=== PATIENT | female | born 1950 | race Caucasian/White ===

== ENCOUNTER 2017-01-17 10:35 | Inpatient (IN) | payer BC ==
[~2017-01-17] VITALS: Ht 162.6 cm; Wt 58.5 kg
[2017-01-17] VITALS (18 sets, daily range): BP systolic 107–182; BP diastolic 61–96; PULSE 57–92; RESP 16–20; TEMP 97.5–98.6; O2SAT 96–100
[~2017-01-17 10:35] MED LIST: BENA25CA2 PO; ERYT2GEL9 TOPICAL; IMDU60TA PO; LEVA750T PO; LEVO50TA4 PO; LOSA25TA PO; METO25TA3 PO; PERC5TAB12 PO; ROSU40 PO; VORA1TAB PO
[2017-01-17] MEDS ORDERED: ASPIRIN 325 MG TAB PO ONE (11:00)
[2017-01-17] MEDS ORDERED: SODIUM CHLORIDE 0.9% FLUSH 10 ML FLUSH IVF PRN (11:00)
[2017-01-17 11:06] LABS: AUTOMATED NEUTROPHIL # 5.2 TH/MM3 (1.8-7.7); BASOPHIL # 0.2 TH/MM3 (0-0.2); EOSINOPHIL # 0.1 TH/MM3 (0-0.4); EOSINOPHIL % 1.3 % (0.0-4.0); HEMATOCRIT 46.9 % (35.0-46.0); LYMPH % 22.9 % (9.0-44.0); LYMPHOCYTE # 1.8 TH/MM3 (1.0-4.8); MEAN CELL VOLUME 83.8 FL (80.0-100.0); MEAN CORPUSCULAR HEMOGLOBIN 27.8 PG (27.0-34.0); MEAN CORPUSCULAR HGB CONC 33.2 % (32.0-36.0); MONO % 9.2 % (0.0-8.0); NEUT % 64.6 % (16.0-70.0); PLATELET COUNT 201 TH/MM3 (150-450); RED CELL DISTRIBUTION WIDTH 14.7 % (11.6-17.2); WHITE BLOOD COUNT 8.1 TH/MM3 (4.0-11.0)
[2017-01-17] MEDS ORDERED: PLAV75TA29 PO (11:06)
[2017-01-17] MEDS ORDERED: BENA25TA3 PO (11:06)
[2017-01-17] MEDS ORDERED: ASPI81CH CHEW (11:07)
[2017-01-17 11:09] LABS: HEMO FLAGS DIFF FINAL
[2017-01-17] MEDS: NITROGLYCERIN 0.4 MG SL 25 TABS/BTL SL SCH ×3 (11:12→11:31)
--- NOTE | 2017-01-17 11:22 | RADHPO ---
EXAM DATE/TIME: 01/17/2017 11:00 [place] COMPARISON: CHEST PA & LAT, August 15, 2016, 12:10. INDICATIONS : [place]/pain in chest. MEDICAL HISTORY : Hypertension. Myocardial infarction. Hypercholesterolemia. AAA. Thyroid disease. Diabetic. Endmet reosis. SURGICAL HISTORY : Tonsillectomy. Fusion, cervical. Tubal ligation. Cardiac stents. ENCOUNTER: Initial ACUITY: 3 days PAIN SCORE: 6/10 LOCATION: chest FINDINGS: A single view of the chest demonstrates the lungs to be symmetrically aerated without evidence of mas s, infiltrate or effusion. The cardiomediastinal contours are unremarkable. Osseous structures are intact. CONCLUSION: 1. No acute cardiopulmonary findings. Jeff Shahid MD on January 17, 2017 at 11:20 Board Certified Radiologist. This report was verified electronically.
[2017-01-17 11:26] LABS: BICARBONATE 19.8 MEQ/L (21.0-32.0); MAGNESIUM 2.1 MG/DL (1.5-2.5)
[2017-01-17 11:27] LABS: APTT (PATIENT) 26.8 SEC (24.3-30.1); PROTHROMBIN TIME - PATIENT 10.8 SEC (9.8-11.6)
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
[2017-01-17] MEDS ORDERED: SODIUM CHLORID 0.9% 500 ML INJ 500 ML IV ONE (11:45)
[2017-01-17] MEDS ORDERED: ACETAMINOPHEN 325 MG TAB PO ONE (11:45)
[2017-01-17] MEDS ORDERED: ALUMINUM/MAGNESIUM/SIMETH 30 ML CUP PO ONE (12:00)
[2017-01-17] MEDS ORDERED: ONDANSETRON HCL 4 MG/2 ML VIAL IV PUSH ONE (12:00)
[2017-01-17] MEDS ORDERED: LIDOCAINE VISCOUS 2% SOLN 15 ML UDC PO ONE (12:00)
[2017-01-17 12:15] LABS: INDIRECT BILIRUBIN 0.6 MG/DL (0.0-0.8); TOTAL BILIRUBIN ADULT 0.7 MG/DL (0.2-1.0)
[2017-01-17] MEDS ORDERED: HEPARIN SODIUM - IV 10,000 UNITS/10 ML VIAL IV ONE (12:45)
[2017-01-17] MEDS ORDERED: HEPARIN-D5W INJ 250 ML IV SCH (12:45)
[2017-01-17] MEDS ORDERED: NICOTINE 21 MG/24 HR PATCH T-DERMAL ONE (12:45)
[2017-01-17] MEDS ORDERED: METOPROLOL TARTRATE 25 MG TAB PO ONE (13:00)
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
[2017-01-17] MEDS ORDERED: diphenhydrAMINE HCL 25 MG CAP PO PRN (17:00)
[2017-01-17] MEDS ORDERED: MORPHINE SULFATE 4 MG/ML INJ IV PRN (17:00)
[2017-01-17] MEDS ORDERED: DEXTROSE 50% IN WATER 50 ML VIAL(D50) IV PUSH PRN (17:00)
[2017-01-17] MEDS ORDERED: NALOXONE HCL 0.4 MG/ML AMP IV PRN (17:00)
[2017-01-17] MEDS ORDERED: [UNRECOGNIZED DRUG - REMARK] PO PRN (17:00)
[2017-01-17] MEDS ORDERED: SENNOSIDES 8.6 MG TAB PO PRN (17:00)
[2017-01-17] MEDS ORDERED: GLUCAGON 1 MG/ML VIAL OTHER PRN (17:00)
[2017-01-17] MEDS ORDERED: ONDANSETRON HCL 4 MG/2 ML VIAL IVP PRN (17:00)
[2017-01-17] MEDS ORDERED: SODIUM CHLORIDE 0.9% FLUSH 10 ML FLUSH IV FLUSH PRN (17:00)
[2017-01-17] MEDS ORDERED: NITROGLYCERIN 0.4 MG SL 25 TABS/BTL SL PRN (17:00)
[2017-01-17] MEDS: DOCUSATE SODIUM 100 MG CAP PO SCH (18:02)
[2017-01-17] MEDS: PANTOPRAZOLE SOD 40 MG DELAYED RELEASE TAB PO SCH (18:02)
[2017-01-17] MEDS: SODIUM CHLOR 0.9% 1000 ML INJ 1,000 ML IV SCH (18:12)
[2017-01-17 18:15] LABS: APTT (PATIENT) 42.8 SEC (24.3-30.1)
[2017-01-17] MEDS ORDERED: DIAZEPAM 5 MG TAB PO SCH (18:15)
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
[2017-01-17 18:20] LABS: CREATINE KINASE 41 U/L (26-192)
[2017-01-17] MEDS ORDERED: diphenhydrAMINE HCL 25 MG CAP PO SCH (18:30)
[2017-01-17] MEDS ORDERED: ENALAPRILAT 1.25 MG/ML VIAL IV PUSH PRN (18:30)
[2017-01-17] MEDS ORDERED: HEPARIN SODIUM - IV 10,000 UNITS/10 ML VIAL IV PRN ×2 (18:45)
[2017-01-17 20:02] LABS: BACTERIA, URINE RARE /hpf; BLOOD, URINE NEG (NEG); COMMENT (UR) CULT NOT INDICATED; CULTURE IF INDICATED CULT NOT INDICATED; GLUCOSE,URINE NEG (NEG); HYALINE CAST, URINE 10 /lpf (RARE); KETONE, URINE NEG (NEG); MUCUS URINE FEW /lpf (OCC); NITRITE,URINE NEG (NEG); PH, URINE 5.5 (5.0-8.5); SQUAMOUS EPITHELIAL CELL URINE 7 /hpf (0-5); URINE COLOR YELLOW (YELLW/STRAW)
--- NOTE | 2017-01-17 20:17 | RADRPT ---
EXAM DATE/TIME: 01/17/2017 18:23 [facility] COMPARISON: No previous studies available for comparison. INDICATIONS : Right upper quadrant pain. Nausea/vomiting. MEDICAL HISTORY : Myocardial infarction. Aneurysm, abdominal. Hypercholesterolemia. Thyroid disease. HTN. Endometreosis . Diabetes. Anticoagulant therapy, Plavix. SURGICAL HISTORY : Tonsillectomy. Tubal ligation. Titanium plate in neck. Cardiac stent. Exploratory laprascopy. Right trigger thumb surgery. Blood transfusions. ENCOUNTER: Initial ACUITY: 4-6 days PAIN SCORE: 8/10 LOCATION: Right upper quadrant MEASUREMENTS: LIVER: 12.4 cm length COMMON DUCT: 4 mm RIGHT KIDNEY: 9.4 x 4.0 x 4.2 cm FINDINGS: LIVER: Normal echotexture without focal lesion or ductal dilatation. COMMON DUCT: No intraluminal mass or stone visualized. GALLBLADDER: Contains no stones, demonstrates no wall thickening or pericholecystic fluid. PANCREAS: The visualized portions are within normal limits. RIGHT KIDNEY: No evidence of hydronephrosis, stone, or mass. CONCLUSION: Normal examination. Pola Barrow MD on January 17, 2017 at 20:15 Board Certified Radiologist. This report was verified electronically.
[2017-01-17] MEDS: METOPROLOL TARTRATE 25 MG TAB PO SCH (21:00)
[2017-01-17] MEDS: INSULIN ASPART SUPPLEMENTAL SCALE SQ SCH (21:00)
--- NOTE | 2017-01-17 21:35 | MB ---
cc: POLINA OLIVAREZ M.D. DATE OF CONSULTATION 01/17/17 REASON FOR CONSULTATION Evaluation of chest pain and elevated troponin. HISTORY OF PRESENT ILLNESS Katerina Mederos is a 66-year-old woman who has been a patient of mine for many years. She has known severe vascular disease. Unfortunately, she suffers from chronic tobacco addiction. She did quit for a few months but restarted soon after she had surgery on her left leg. She is known to have carotid disease, peripheral arterial disease and coronary artery disease. She underwent left common femoral endarterectomy not that long ago and had major complications with hemorrhaging, repeat surgery and nerve damage in her leg. She has recovered from that. She started smoking again. She also has known coronary artery disease. She had an acute inferior myocardial ST-segment elevation myocardial infarction July 24, 2008 and at that time had a 3.0 x 18 mm stent placed in her mid right coronary artery. Her last cardiac catheterization was June 18, 2009. At that time she had normal LV function with an EF 60%. Her left main artery was normal. Her LAD had irregularities throughout. There were no high-grade stenoses in the LAD but the first branch off the LAD which is like a ramus had 6% ostial and 70% proximal disease. The second branch off the LAD which coursed more like a diagonal had 60% ostial disease. Circumflex artery was small with 40-50% ostial disease. Her right coronary artery had diffuse 30% plaquing with a patent mid stent and 40% ostial right coronary disease. She has been having angina described as a heaviness in her chest when she does simple things like vacuuming. Then, she started getting very sick starting which was 1 week ago. She described a substernal burning discomfort between her breasts. She has been queasy. She has been fatigued. She had some vomiting Sunday night. Sunday she was holding her chest because it hurt. She has also had discomfort in her upper back. She also has had some GI symptoms with nausea, vomiting. Some ___ bowel she described it and burning in her chest. Her nitro at home are old. She had no effects from that. She received 3 nitro in the ER with significant improvement in her discomfort, although, has not completely 100% resolved. She is currently on IV heparin and looks stable and she has been only intermittently compliant with her medications. She has not had any Plavix in the past week. Her other medications she has been taking sporadically. MEDICATIONS Her medications have included: 1. 81 milligrams aspirin daily. 2. Levothyroxine 50 micrograms daily. 3. Metoprolol 25 milligrams p.o. b.i.d. 4. Rosuvastatin 40 milligrams daily. 5. Plavix which she has not been taking. ALLERGIES ALLERGIES INCLUDE AMOXICILLIN, DARVOCET AND NAPROXEN. PAST MEDICAL HISTORY Includes small abdominal aortic aneurysm, chronic angina, first-degree AV block, left bundle-branch block. Previous bowel obstruction with surgery, this was due to endometriosis many years ago. Depression, type 2 diabetes, Antony's thyroiditis, hyperlipidemia, hypertension, old HI. Peripheral arterial disease. Tobacco use disorder. FAMILY HISTORY Family history is positive for COPD in both parents. CHF in her mother. Coronary artery disease in her father. Depression in her mother. Diabetes in her father. Hypertension in her father. Myocardial infarction in her father and stomach cancer in her maternal grandfather. SOCIAL HISTORY Only occasional alcohol use. She is . She smokes. REVIEW OF SYSTEMS The review of systems otherwise noncontributory. PHYSICAL EXAMINATION GENERAL: Reveals a well-developed, well-nourished white female. She does not appear to be in acute distress. VITAL SIGNS: Charted. HEENT: Exam is unremarkable. NECK: Shows a left carotid bruit. I think she has a right subclavian bruits. There is also noise in the right carotid but it sounds like it may be coming from the subclavian. CHESET: Her chest shows diminished breath sounds but no wheezes or rales. CARDIAC: Exam shows S1-S2, regular rate and rhythm. No murmurs, gallops. ABDOMEN: Abdomen is soft, nontender. No bruits. Right groin has no bruits paste. EXTREMITIES: Pedal pulses are normal in the right. There is mildly diminished in the left. Radial pulses are intact. CARDIOLOGY STUDIES EKG shows sinus rhythm with a left bundle-branch block. DATA Her laboratories are charted. Her troponin is 0.07. Her hematocrit is normal. Creatinine is normal. Her chest x-ray shows no acute disease. Hematocrit was 46.9 which is actually mildly elevated. Creatinine 0.92. IMPRESSION This is a 66-year-old woman with severe vascular disease that is generalized throughout her whole body. She underwent left common femoral endarterectomy not that long ago and had significant complications from that. She is clearly having anginal type symptoms with a heaviness in her chest when she vacuums. She did not have that when I last saw her in the office. The symptoms she has had in the past week are mixed. I still think that most likely due to ischemia I cannot completely exclude a GI etiology either. Her troponins mildly elevated but only slightly. EKG is not helpful in that it shows left bundle-branch block. My by working diagnosis is that this is unstable angina, possible non-STEMI. My recommendation is that we proceed with a cardiac catheterization in the morning. Continue heparin for time-being, continue nitrates and beta ehsan. I have counseled her over a dozen times about quitting smoking. My concern with the coronaries is that she had three-vessel disease on her cath in 2008 and there has been quite a bit of time that has elapsed since then and the likelihood that she needs bypass surgery is markedly elevated. I have explained this to her. She actually has not had any Plavix in the past week and I am discontinuing it in case she needs Plavix she will not have to be delayed for that. I was thinking of doing his from the right radial artery approach but she sounds like she has a right subclavian bruits. She has a good right groin pulse and good pulses in her right foot so I am going to through the right groin, although, I do know she has diffuse iliac disease from her cath in 2008. The risk of her procedure her risks are clearly elevated but will be careful. Further therapy be determined. Polina Olivarez MD VEBrandy/EO /6:18 PM /9:08 PM
[2017-01-17] MEDS: SODIUM CHLORIDE 0.9% FLUSH 10 ML FLUSH IV FLUSH SCH (21:52)
[2017-01-17] MEDS ORDERED: NITROGLYCERIN 2% OINT 1 GM PACKET TOPICAL ONE (22:45)
[2017-01-18] VITALS (34 sets, daily range): BP systolic 111–141; BP diastolic 50–74; PULSE 50–72; RESP 16–18; TEMP 97.5–98.6; O2SAT 94–98
[2017-01-18 02:20] LABS: AUTOMATED NEUTROPHIL # 4.8 TH/MM3 (1.8-7.7); BASOPHIL # 0.1 TH/MM3 (0-0.2); BASOPHIL % 0.7 % (0.0-2.0); EOSINOPHIL # 0.2 TH/MM3 (0-0.4); HEMATOCRIT 38.7 % (35.0-46.0); HEMO FLAGS DIFF FINAL; LYMPH % 28.5 % (9.0-44.0); LYMPHOCYTE # 2.2 TH/MM3 (1.0-4.8); MEAN CELL VOLUME 83.3 FL (80.0-100.0); MEAN CORPUSCULAR HEMOGLOBIN 27.9 PG (27.0-34.0); MEAN CORPUSCULAR HGB CONC 33.4 % (32.0-36.0); MONO % 7.9 % (0.0-8.0); NEUT % 60.9 % (16.0-70.0); PLATELET COUNT 161 TH/MM3 (150-450); RED BLOOD COUNT 4.64 MIL/MM3 (4.00-5.30); RED CELL DISTRIBUTION WIDTH 15.1 % (11.6-17.2); WHITE BLOOD COUNT 7.8 TH/MM3 (4.0-11.0)
[2017-01-18 02:29] LABS: APTT (PATIENT) 64.7 SEC (24.3-30.1)
[2017-01-18 02:48] LABS: ALT (GPT) 21 U/L (10-53); ANION GAP 8 MEQ/L (5-15); AST (GOT) 13 U/L (15-37); BICARBONATE 24.1 MEQ/L (21.0-32.0); BLOOD UREA NITROGEN 17 MG/DL (7-18); CHLORIDE 107 MEQ/L (98-107); GLOMERULAR FILTRATION RATE 63 ML/MIN (>89); POTASSIUM 3.9 MEQ/L (3.5-5.1); SODIUM (NA) 139 MEQ/L (136-145)
[2017-01-18 02:58] LABS: ALKALINE PHOSPHATASE 86 U/L (45-117); TOTAL BILIRUBIN ADULT 0.4 MG/DL (0.2-1.0)
[2017-01-18] MEDS ORDERED: NITROGLYCERIN-DEXTROSE INJ 250 ML IV SCH ×2 (05:00)
[2017-01-18] MEDS: INSULIN ASPART SUPPLEMENTAL SCALE SQ SCH ×4 (05:52→21:00)
[2017-01-18] MEDS: PANTOPRAZOLE SOD 40 MG DELAYED RELEASE TAB PO SCH ×2 (05:54→18:00)
[2017-01-18] MEDS: LEVOTHYROXINE SODIUM 50 MCG TAB PO SCH (05:54)
[2017-01-18] MEDS: DOCUSATE SODIUM 100 MG CAP PO SCH ×2 (05:54→18:27)
[2017-01-18] MEDS: SODIUM CHLOR 0.9% 1000 ML INJ 1,000 ML IV SCH ×5 (06:15→22:28)
[2017-01-18] MEDS ORDERED: ONDANSETRON HCL 4 MG/2 ML VIAL ONE (07:22)
[2017-01-18] MEDS ORDERED: HEPARIN-NS/PF INJ 500 ML ONE (07:28)
[2017-01-18] MEDS ORDERED: MIDAZOLAM HCL 2 MG/2 ML VIAL ONE (07:28)
[2017-01-18] MEDS ORDERED: IOHEXOL 350 MG/ML 50 ML BTL (for Cath Lab) OTHER ONE (07:47)
[2017-01-18] MEDS ORDERED: MISC INFORMATION XX ONE (08:30)
--- NOTE | 2017-01-18 08:46 | MA ---
cc: POLINA OLIVAREZ M.D. DATE: 01/18/2017 PROCEDURE PERFORMED Left heart catheterization, left ventriculography, coronary angiography. DESCRIPTION OF PROCEDURE The patient was brought to the cardiac laborer orchard in a fasting state. The right groin was prepped and draped in sterile fashion. Using 1% lidocaine for local anesthesia, I was able to enter the right femoral artery on the first stick anterior wall only. This was despite the pulse being weak. I used exchange wire technique throughout the case. Left ventricular pressure followed by left ventriculography and then a pullback were performed with an angled pigtail catheter. Angiography of the left coronary artery was performed using a left four Ewelina catheter. Angiography of the right coronary artery was performed using a 3DRC catheter. The sheath was then pulled manually. There were no complications. FINDINGS 1. Hemodynamics. Left ventricular pressure is 122/16 with an end-diastolic pressure of 20, aortic pressure is 128/59 with a mean of 84. 2. Left ventriculography. Left ventriculography shows slightly impaired LV function, estimated ejection fraction is 45-50%. There is a very small slight degree of anterolateral hypokinesis which I cannot explain angiographically. 3. Coronary angiography. Left main coronary artery appears normal. It bifurcates into the LAD and circumflex vessels. The LAD has three significant branches, the first branch courses like a ramus intermediate branch and has mild diffuse disease but no significant stenosis. The second branch of the LAD which comes off by the first septal bill poster installer branch is very small diagonal with 30% ostial disease. The next diagonal is actually the largest diagonal and has about 60-70% ostial disease similar to her old procedures. The LAD itself has only mild irregularities. There is no significant stenosis seen in the LAD proper. The circumflex artery is very, very focal ostial stenosis of about 50% in severity. The circumflex artery itself gives off one major marginal branch, this has only mild irregularities. The right coronary artery is dominant. This vessel has a widely patent stent in its mid segment. The ostium to the mid stent, that segment of the right coronary artery is diffusely diseased 30%. The ostium of the right coronary artery appears small caliber. There is no spot however, that appears in need of any revascularization. The distal right coronary artery has irregularities. The posterior descending artery branch has about 50% ostial disease. CONCLUSION 1. Slightly impaired LV function. 2. Mildly elevated left ventricular end-diastolic pressure. 3. Mild diffuse coronary artery disease but no areas in need of revascularization. RECOMMENDATIONS The patient is continually reminded to quit smoking. Will continue medications. Her current syndrome might possibly be from a GI problem, will get a GI doctor consulted and wound recommend endoscopy. MD MARCELINO Huynh/RINA /8:24 AM /8:37 AM
[2017-01-18] MEDS ORDERED: NON-FORMULARY DRUG (Rosuvastatin (Crestor) 40 MG) PO SCH (09:00)
[2017-01-18] MEDS ORDERED: CLOPIDOGREL 75 MG TAB PO SCH (09:00)
[2017-01-18] MEDS ORDERED: PNEUMOCOCCAL POLYVALENT INJ 25 MCG/0.5 ML SYR IM ONE (09:00)
[2017-01-18] MEDS: LOSARTAN 25 MG TAB PO SCH (09:59)
[2017-01-18] MEDS: ASPIRIN 81 MG CHEW TAB CHEW SCH (09:59)
[2017-01-18] MEDS: METOPROLOL TARTRATE 25 MG TAB PO SCH ×2 (09:59→21:54)
[2017-01-18] MEDS: ATORVASTATIN 80 MG TAB PO SCH (09:59)
[2017-01-18] MEDS: SODIUM CHLORIDE 0.9% FLUSH 10 ML FLUSH IV FLUSH SCH ×2 (10:01→21:54)
--- NOTE | 2017-01-18 10:39 | HHI.FPPN ---
Subjective Remarks Overnight patient continued to have epigastric and lower chest pain. She was placed on sublingual nitrogen and a nitrogen drip. She continues to feel nauseous intermittently. She has indigestion and burning in her chest. She has pain radiating to the back. No shortness of breath overnight. She had a bowel movement this morning. No vomiting. No calf tenderness. (Damian Somers MD R2) Objective Vitals Vital Signs Date Time Temp Pulse Resp B/P Pulse Ox O2 Delivery O2 Flow Rate FiO2 01/18/17 09:43 97 21 01/18/17 09:30 60 112/65 01/18/17 09:15 58 129/71 01/18/17 09:00 57 127/70 01/18/17 09:00 58 01/18/17 08:45 53 130/64 01/18/17 07:00 60 01/18/17 07:00 62 18 141/66 96 01/18/17 06:18 64 01/18/17 05:32 62 01/18/17 04:00 68 01/18/17 03:00 98.6 57 16 111/50 96 01/18/17 03:00 57 01/18/17 02:00 64 01/18/17 01:00 60 01/18/17 00:00 65 01/17/17 23:00 62 01/17/17 23:00 98.6 67 16 166/83 100 01/17/17 22:00 66 01/17/17 21:00 78 01/17/17 20:00 80 01/17/17 19:00 98.3 68 18 151/94 98 01/17/17 19:00 81 01/17/17 18:00 69 01/17/17 17:45 96 21 01/17/17 17:00 61 01/17/17 16:00 68 01/17/17 15:40 97.5 57 18 157/96 96 01/17/17 13:51 62 20 145/61 99 Nasal Cannula 2 01/17/17 13:06 78 16 145/80 100 Nasal Cannula 2 01/17/17 12:24 73 16 130/67 100 Nasal Cannula 2 01/17/17 11:29 83 16 107/67 98 Nasal Cannula 2 01/17/17 11:23 77 16 109/66 99 Nasal Cannula 2 01/17/17 10:58 70 16 157/83 100 Nasal Cannula 2 133/88 01/17/17 10:57 16 100 Nasal Cannula 2 01/17/17 10:56 100 Nasal Cannula 2 01/17/17 10:52 16 99 Nasal Cannula 2 01/17/17 10:48 97.7 92 16 182/86 99 I/O 01/17/17 01/17/17 01/17/17 01/18/17 01/18/17 01/18/17 07:00 15:00 23:00 07:00 15:00 23:00 Intake Total 500 ml 240 ml 980 ml Output Total 200 ml 1 ml Balance 500 ml 40 ml 979 ml Intake Oral 240 ml 500 ml IV Total 500 ml 480 ml Output Urine Total 200 ml Stool Total 1 ml # Voids 3 (Damian Somers MD R2) Result Diagram: 01/18/1721201/18/173 Objective Remarks GENERAL: Lying in bed, no distress, appears comfortable SKIN: No rashes HEENT: Normocephalic, no nasal discharge, normal pharynx NECK: No thyromegaly, no neck stiffness CARDIOVASCULAR: Regular rate and rhythm without murmurs, gallops, or rubs. Minimal DP pulses. Normal radial pulses. RESPIRATORY: Clear to auscultation. Breath sounds equal bilaterally. No wheezes , rales, or rhonchi. GASTROINTESTINAL: Pain on palpation of the RUQ. Positive Canales's sign. Significant tenderness palpation in the epigastric region. MUSCULOSKELETAL: Mild pain on palpation of the paraspinal muscles of the upper back. No calf tenderness or swelling. NEUROLOGICAL: Awake and alert. Cranial nerves II through XII intact. Motor and sensory grossly within normal limits. (Damian Somers MD R2) A/P Assessment and Plan 66 year old female with a significant cardiovascular history presents with lower chest pain, epigastric pain, indigestion. DDx is broad, and includes inferior TX, indigestion/GERD, costochondritis, cholecystitis, pancreatitis, AAA rupture, and esophageal/peptic ulcer. Lipase jumped up to 1314 overnight. Discharge Planning Pending reasonable control of symptoms, ruling out serious etiologies, clearance by cardiology (Damian Somers MD R2) Attending Attestation Patient seen and examined, discussed with resident team. I agree with assessment and management as documented and discussed with me. The patient has been seen and examined. The chart and all resident notes have been reviewed. I agree that inpatient care is appropriate and that a two midnight stay is expected for the reasons documented in the resident history and physical. I have discussed this with the resident and certify the resident s order for inpatient admission. Katerina Mederos is a 66yo lady with significant vascular history admitted for chest pain and epigastric pain, which has been constant x 3-4 days. Mild relief with nitroglycerin. For further details, please see resident H&P. This morning, she is seen s/p cardiac cath, which demonstrated stable CAD. ROS: + nausea, no vomiting. + abdominal pain. + chest pain. NO SOB, no palpitations. All other systems reviewed are negative. PMH/PSxH/SocHx/FamHx: Per resident H&P. Significant for: CAD, gastric ulcers at 17yo, ileus in 1984. She has had prior cardiac cath. Fam hx of cardiac disease. + tobacco abuse; in precontemplative state of change. Works at [employer]. Given results of cardiac cath, it is unlikely that coronary artery disease is currently contributing to patient's system. A GI work up is underway, including RUQ US which was negative. GI has been consulted - anticipate possible EGD for evaluation. (Karol Fox MD) Problem List: (1) Pancreatitis Status: Acute Plan: Lipase jumped to 1314 overnight. Has significant epigastric pain. Also has positive Canales sign suggesting possible gallbladder issue. Gallbladder ultrasound negative. - Proceed with HIDA scan - Continue pain management regimen - Continue IV fluids - Revert to full liquid diet, advance as tolerated (2) Chest pain in adult Status: Acute Plan: Lower chest pain with epigastric pain, indigestion, nausea, with significant cardiovascular history. Initial troponin of 0.07, 0.06. Third troponin pending. EKG with stable LBBB, left axis deviation, no ST changes. Lipase normal, repeat elevated. Cardiac cath done today, awaiting results. - Consulted cardiology, Dr. Baumann - Started on heparin drip in ED, now discontinued - Follow up results of catheterization - Continue aspirin, Plavix on hold by cardiology, has history of drug eluting stent in 2007 - Continue statin - Continue beta ehsan - Oxycodone, morphine PRN for pain - PPI for indigestion, increase dose for possible esophageal/gastric ulcer - H. Pylori stool antigen - GI consulted, possible endoscopy to look for ulcer (3) Presence of stent in coronary artery in patient with coronary artery disease Status: Chronic Plan: - Continue aspirin - Plavix held by cardiology (4) Hypothyroidism Status: Chronic Plan: History of hypothyroidism, presenting with fatigue for the past few weeks. TSH normal. - Continue levothyroxine (5) Hypertension Status: Chronic Plan: - Continue beta ehsan - Vasotec PRN (6) History of prediabetes Status: Chronic Plan: - Check glucoses - sliding scale insulin if needed (7) Smoker Status: Chronic Plan: - Counseling on smoking cessation (8) Nutrition, metabolism, and development symptoms Status: Acute Plan: - Full liquid diet, advance as tolerated (9) No contraindication to deep vein thrombosis (DVT) prophylaxis Status: Acute Plan: - Getting heparin drip currently - SCD's (Damian Somers MD R2) Damian Somers MD R2 Jan 18, 2017 10:39 Karol Fox MD Jan 18, 2017 20:38
[2017-01-18] MEDS: ENOXAPARIN SODIUM 40 MG/0.4 ML SYRINGE SQ SCH (11:40)
--- NOTE | 2017-01-18 13:02 | EKG ---
Date Performed: 01/17/2017 Time Performed: 17:32:38 PTAGE: 66 years EKG: Sinus bradycardia with borderline 1st degree A-V block. Left axis deviation Left bundle bra nch block Abnormal ECG NO PREVIOUS TRACING DOCTOR: Oscar Fernandez Interpretating Date/Time 01/18/2017 12:59:51
--- NOTE | 2017-01-18 13:35 | EKG ---
Date Performed: 01/17/2017 Time Performed: 10:39:06 PTAGE: 66 years EKG: Sinus rhythm Possible left atrial abnormality Left axis deviation Left bundle branch block Abnormal ECG PREVIOUS TRACING : 06/28/2009 08.57 Compared to prior tracing no significant change DOCTOR: Oscar Fernandez Interpretating Date/Time 01/18/2017 13:34:43
[2017-01-18] MEDS: ONDANSETRON HCL 4 MG/2 ML VIAL IV PRN ×3 (14:24→21:47)
--- NOTE | 2017-01-18 14:56 | PD.CONS ---
HPI History of Present Illness This is a 66 year old [lady] who came to the hospital complaining of chest pains. Her pains were in the sternal region and also epigastric region, 8/10. The pain started 1 week ago and gradually worsened to the point it was 8/10. It was a burnign pain. She also had nausea and severe acid reflux along with the pain. She had 3 episodes of diarrhea in this time but that has resolved and she had a solid BM yesterday morning. She has a distant hx of ulcers, 30 y ago and none since taht she knows of. She has never had acid reflux prior to this episode. She denies change in routine or medications. No blood in stool, vomiting, or dysphagia. She had an EGD many years ago, when the ulcers were diagnosed- she was a teenager. The sternal pain has improved since being here but she is still having epigastric burning. (Delisa Roach) PFSH Past Medical History ND CVD CAD hypothyroid Past Surgical History vascular surgery appendectomy laparoscopic tubal ligation repair small bowel obstruction ACDF hand surgery (Delisa Roach) Coded Allergies: Amoxicillin (Verified Allergy, Severe, unknown, 01/17/17) Darvocet-N 100 (Unverified Allergy, Severe, NAUSEA/VOMITING, 01/17/17) Penicillin (Verified Allergy, Severe, 01/17/17) Naproxen (Verified Allergy, Unknown, 01/17/17) Medications Current Medications Medications (Trade) Dose Ordered Sig/Abiel Route PRN Reason Start Time Stop Time Status Last Admin Dose Admin Aspirin (Aspirin Chew) 81 mg DAILY CHEW 01/18/17 09:00 01/18/17 09:59 Levothyroxine Sodium (Synthroid) 50 mcg DAILY@06 PO 01/18/17 06:00 01/18/17 05:54 Losartan Potassium (Cozaar) 25 mg DAILY PO 01/18/17 09:00 01/18/17 09:59 Metoprolol Tartrate (Lopressor) 25 mg BID PO 01/17/17 21:00 01/18/17 09:59 Diphenhydramine HCl (Benadryl) 25 mg Q6H PRN PO ALLERGIES 01/17/17 17:00 Atorvastatin Calcium (Lipitor) 80 mg DAILY PO 01/18/17 09:00 01/18/17 09:59 Sodium Chloride (NS Flush) 2 ml UNSCH PRN IV FLUSH FLUSH AFTER USING IV ACCESS 01/17/17 17:00 Sodium Chloride (NS Flush) 2 ml BID IV FLUSH 01/17/17 21:00 01/18/17 10:01 Docusate Sodium (Colace) 100 mg Q12H PO 01/17/17 18:00 01/18/17 05:54 Sennosides (Senokot) 17.2 mg Q12H PRN PO CONSTIPATION 01/17/17 17:00 Naloxone HCl (Narcan Inj) 0.4 mg UNSCH PRN IV SEE LABEL COMMENTS 01/17/17 17:00 Morphine Sulfate (Morphine Inj) 2 mg Q4H PRN IV PAIN SCALE 8 TO 10 01/17/17 17:00 01/17/17 22:22 Nitroglycerin (Nitrostat Sl) 0.4 mg Q5M PRN SL CHEST PAIN 01/17/17 17:00 01/17/17 22:21 Dextrose (D50w (Vial) Inj) 25 ml UNSCH PRN IV PUSH HYPOGLYCEMIA-SEE COMMENTS 01/17/17 17:00 Glucagon 1 mg 1 mg UNSCH PRN OTHER HYPOGLYCEMIA-SEE COMMENTS 01/17/17 17:00 Sodium Chloride (NS 1000 ml Inj) 1,000 ml @ 83 mls/hr Q12H3M IV 01/17/17 18:12 01/22/17 18:11 01/17/17 18:12 Oxycodone HCl (Roxicodone) 5 mg Q4H PRN PO PAIN SCALE 1 TO 4 01/17/17 18:30 Enalaprilat (Vasotec Inj) 1.25 mg Q6H PRN IV PUSH SBP>180, DBP>110 01/17/17 18:30 Oxycodone HCl 10 mg 10 mg Q4H PRN PO PAIN SCALE 5 TO 7 01/17/17 22:30 01/18/17 14:24 Sodium Chloride (NS 1000 ml Inj) 1,000 ml @ 150 mls/hr Q6H40M IV 01/18/17 08:26 01/18/17 08:26 Ondansetron HCl (Zofran Inj) 4 mg Q4H PRN IV NAUSEA 01/18/17 08:30 01/18/17 14:24 Pantoprazole Sodium (Protonix) 40 mg BID@09,18 PO 01/18/17 18:00 Enoxaparin Sodium (Lovenox Inj) 40 mg Q24H SQ 01/18/17 11:00 01/18/17 11:40 Family History grandfather had stomach cancer CVD liver cancer in distant relatives Social History smokes 1/2 ppd 1 glass wine daily (Delisa Roach) Review of Systems Constitutional: DENIES: Fever, Chills Eyes: DENIES: Blurred vision Ears, nose, mouth, throat: DENIES: Hearing loss Respiratory: DENIES: Cough, Hemoptysis Cardiovascular: DENIES: Chest pain, Palpitations, Lower Extremity Edema Gastrointestinal: COMPLAINS OF: Abdominal pain, Nausea, DENIES: Black stools, Bloody stools, Constipation, Diarrhea, Vomiting, Difficulty Swallowing Musculoskeletal: DENIES: Joint pain Integumentary: DENIES: Abnormal pigmentation Hematologic/lymphatic: DENIES: Bruising Neurologic: DENIES: Abnormal gait (Delisa Roach) GI Exam Vitals I&O Vital Signs Date Time Temp Pulse Resp B/P Pulse Ox O2 Delivery O2 Flow Rate FiO2 01/18/17 13:30 58 123/67 01/18/17 13:00 72 01/18/17 12:30 60 121/70 01/18/17 12:00 60 01/18/17 11:30 57 137/71 01/18/17 11:00 58 01/18/17 11:00 97.9 61 18 120/69 94 01/18/17 11:00 58 120/69 01/18/17 10:30 66 01/18/17 10:00 62 114/74 01/18/17 10:00 56 01/18/17 09:43 97 21 01/18/17 09:30 60 112/65 01/18/17 09:15 58 129/71 01/18/17 09:00 57 127/70 01/18/17 09:00 58 01/18/17 08:45 53 130/64 01/18/17 07:00 60 01/18/17 07:00 97.5 62 18 141/66 96 01/18/17 06:18 64 01/18/17 05:32 62 01/18/17 04:00 68 01/18/17 03:00 98.6 57 16 111/50 96 01/18/17 03:00 57 01/18/17 02:00 64 01/18/17 01:00 60 01/18/17 00:00 65 01/17/17 23:00 62 01/17/17 23:00 98.6 67 16 166/83 100 01/17/17 22:00 66 01/17/17 21:00 78 01/17/17 20:00 80 01/17/17 19:00 98.3 68 18 151/94 98 01/17/17 19:00 81 01/17/17 18:00 69 01/17/17 17:45 96 21 01/17/17 17:00 61 01/17/17 16:00 68 01/17/17 15:40 97.5 57 18 157/96 96 I/O 01/17/17 01/17/17 01/17/17 01/18/17 01/18/17 01/18/17 07:00 15:00 23:00 07:00 15:00 23:00 Intake Total 500 ml 240 ml 980 ml Output Total 200 ml 1 ml Balance 500 ml 40 ml 979 ml Intake Oral 240 ml 500 ml IV Total 500 ml 480 ml Output Urine Total 200 ml Stool Total 1 ml # Voids 3 Imaging Last Impressions Gall Bladder Ultrasound 01/17/17 1742 Signed Impressions: Service Date/Time: Tuesday, January 17, 2017 18:23 - CONCLUSION: Normal examination. Pola Barrow MD Chest X-Ray 01/17/17 1054 Signed Impressions: Service Date/Time: Tuesday, January 17, 2017 11:00 - CONCLUSION: 1. No acute cardiopulmonary findings. Jeff Shahid MD Laboratory Test 01/17/17 01/17/17 01/17/17 01/18/17 17:46 19:00 23:04 02:13 Activated Partial 42.8 SEC 64.7 SEC Thromboplast Time Total Creatine Kinase 41 U/L 44 U/L Troponin I 0.06 NG/ML 0.07 NG/ML Urine Color YELLOW Urine Turbidity HAZY Urine pH 5.5 Urine Specific [place] 1.033 Urine Protein TRACE mg/dL Urine Glucose (UA) NEG mg/dL Urine Ketones NEG mg/dL Urine Occult Blood NEG Urine Nitrite NEG Urine Bilirubin NEG Urine Urobilinogen 2.0 MG/DL Urine Leukocyte Esterase SMALL Urine RBC LESS THAN 1 /hpf Urine WBC 2 /hpf Urine Squamous Epithelial 7 /hpf Cells Urine Bacteria RARE /hpf Urine Hyaline Casts 10 /lpf Urine Mucus FEW /lpf Microscopic Urinalysis Comment CULT NOT INDICATED White Blood Count 7.8 TH/MM3 Red Blood Count 4.64 MIL/MM3 Hemoglobin 12.9 GM/DL Hematocrit 38.7 % Mean Corpuscular Volume 83.3 FL Mean Corpuscular Hemoglobin 27.9 PG Mean Corpuscular Hemoglobin 33.4 % Concent Red Cell Distribution Width 15.1 % Platelet Count 161 TH/MM3 Mean Platelet Volume 9.7 FL Neutrophils (%) (Auto) 60.9 % Lymphocytes (%) (Auto) 28.5 % Monocytes (%) (Auto) 7.9 % Eosinophils (%) (Auto) 2.0 % Basophils (%) (Auto) 0.7 % Neutrophils # (Auto) 4.8 TH/MM3 Lymphocytes # (Auto) 2.2 TH/MM3 Monocytes # (Auto) 0.6 TH/MM3 Eosinophils # (Auto) 0.2 TH/MM3 Basophils # (Auto) 0.1 TH/MM3 CBC Comment DIFF FINAL Differential Comment Sodium Level 139 MEQ/L Potassium Level 3.9 MEQ/L Chloride Level 107 MEQ/L Carbon Dioxide Level 24.1 MEQ/L Anion Gap 8 MEQ/L Blood Urea Nitrogen 17 MG/DL Creatinine 0.90 MG/DL Estimat Glomerular Filtration 63 ML/MIN Rate Random Glucose 115 MG/DL Calcium Level 8.2 MG/DL Total Bilirubin 0.4 MG/DL Aspartate Amino Transf 13 U/L (AST/SGOT) Alanine Aminotransferase 21 U/L (ALT/SGPT) Alkaline Phosphatase 86 U/L B-Type Natriuretic Peptide 239 PG/ML Total Protein 6.1 GM/DL Albumin 3.1 GM/DL Lipase 1314 U/L Thyroid Stimulating Hormone 1.660 uIU/ML 3rd Gen Physical Examination HEENT:EOMI; normocephalic; atraumatic; no jaundice. NECK: Neck is supple, no JVD, CHEST: Chest is clear to auscultation and percussion. CARDIAC: Regular rate and rhythm with no murmur gallop or rubs. ABDOMEN: Soft, nondistended, RUQ LUQ and epigastric TTP; no hepatosplenomegaly ; bowel sounds are present in all four quadrants. EXTREMITIES: No clubbing, cyanosis, or edema. SKIN: Normal; no rash; no jaundice. DIRECTOR INVESTOR RELATIONS: No focal deficits; alert and oriented times three. (Delisa Roach) Assessment and Plan Plan ASSESSMENT: - elevated lipase, 1314. Will do CT abd to evaluate for pancreatitis and plan for poss EGD tomorrow if neg -epigastric pain and burning. possible EGD to r/o PUD, gastritis. US GB 01/17/17 - ---> normal. PLAN - poss EGD, depending on results CT abd - NPO after midnight - obtain consents - rck lipase in am - continue PPI This pt was seen by myself and Dr Higgins and this note is written on his behalf (Delisa Roach) Physician Comments Seen and examined with LOSS CONTROL ENGINEER, CT abd/pelvis, HIDA scan and egd planned for tomorrow. Discussed withpt. Thank you (Benito Higgins MD) Delisa Roach Jan 18, 2017 14:55 Benito Higgins MD Jan 18, 2017 19:26
[2017-01-19] VITALS (17 sets, daily range): BP systolic 124–136; BP diastolic 62–79; PULSE 48–64; RESP 16–18; TEMP 97.8–98.4; O2SAT 97–99
[2017-01-19] MEDS ORDERED: POVIDONE IODINE 5% (ANTISEPSIS KIT) 4 APPLICATIONS EACH NARE PRN (02:30)
[2017-01-19] MEDS ORDERED: CHLORHEXIDINE GLUCONATE 2 % 1 PACK (2 CLOTHS) TOPICAL PRN (02:30)
[2017-01-19] MEDS ORDERED: LACTATED RINGER'S 1000 ML IV PRN (02:30)
[2017-01-19] MEDS ORDERED: SODIUM CHLORID 0.9% 500 ML IV PRN (02:30)
[2017-01-19] MEDS: SODIUM CHLOR 0.9% 1000 ML INJ 1,000 ML IV SCH ×5 (05:08→18:28)
[2017-01-19] MEDS: DOCUSATE SODIUM 100 MG CAP PO SCH ×2 (06:00→19:05)
[2017-01-19 06:57] LABS: AUTOMATED NEUTROPHIL # 3.3 TH/MM3 (1.8-7.7); BASOPHIL % 0.5 % (0.0-2.0); EOSINOPHIL # 0.1 TH/MM3 (0-0.4); EOSINOPHIL % 2.3 % (0.0-4.0); HEMATOCRIT 37.8 % (35.0-46.0); HEMO FLAGS DIFF FINAL; LYMPH % 32.2 % (9.0-44.0); LYMPHOCYTE # 1.9 TH/MM3 (1.0-4.8); MEAN CELL VOLUME 84.6 FL (80.0-100.0); MEAN CORPUSCULAR HEMOGLOBIN 28.4 PG (27.0-34.0); MEAN CORPUSCULAR HGB CONC 33.6 % (32.0-36.0); MONO % 9.6 % (0.0-8.0); NEUT % 55.4 % (16.0-70.0); PLATELET COUNT 160 TH/MM3 (150-450); RED BLOOD COUNT 4.47 MIL/MM3 (4.00-5.30); RED CELL DISTRIBUTION WIDTH 15.1 % (11.6-17.2)
[2017-01-19] MEDS: INSULIN ASPART SUPPLEMENTAL SCALE SQ SCH ×3 (07:00→16:00)
[2017-01-19 07:02] LABS: APTT (PATIENT) 25.7 SEC (24.3-30.1)
[2017-01-19] MEDS: LEVOTHYROXINE SODIUM 50 MCG TAB PO SCH (07:04)
[2017-01-19 07:19] LABS: ALT (GPT) 21 U/L (10-53); ANION GAP 9 MEQ/L (5-15); AST (GOT) 12 U/L (15-37); BICARBONATE 23.4 MEQ/L (21.0-32.0); BLOOD UREA NITROGEN 8 MG/DL (7-18); CHLORIDE 113 MEQ/L (98-107); GLOMERULAR FILTRATION RATE 68 ML/MIN (>89); POTASSIUM 3.8 MEQ/L (3.5-5.1); SODIUM (NA) 145 MEQ/L (136-145)
[2017-01-19 07:21] LABS: ALKALINE PHOSPHATASE 88 U/L (45-117); TOTAL BILIRUBIN ADULT 0.6 MG/DL (0.2-1.0)
[2017-01-19] MEDS: PANTOPRAZOLE SOD 40 MG DELAYED RELEASE TAB PO SCH ×2 (09:00→19:05)
[2017-01-19] MEDS: METOPROLOL TARTRATE 25 MG TAB PO SCH (09:22)
[2017-01-19] MEDS: ASPIRIN 81 MG CHEW TAB CHEW SCH (09:22)
[2017-01-19] MEDS: ATORVASTATIN 80 MG TAB PO SCH (09:22)
[2017-01-19] MEDS: LOSARTAN 25 MG TAB PO SCH (09:22)
[2017-01-19] MEDS: SODIUM CHLORIDE 0.9% FLUSH 10 ML FLUSH IV FLUSH SCH (09:22)
[2017-01-19] MEDS: ENOXAPARIN SODIUM 40 MG/0.4 ML SYRINGE SQ SCH (11:00)
[2017-01-19] MEDS ORDERED: DIATRIZOATE MEGLUM/DIATRIZOATE SOD 9 ML CUP PO ONE (11:00)
[2017-01-19] MEDS ORDERED: PROPOFOL 200 MG/20 ML AMP IV ONE (12:21)
--- NOTE | 2017-01-19 12:33 | GIPROC ---
[facility] [address] [facility]. [facility], [address] EGD PROCEDURE REPORT EXAM DATE: 01/19/2017 PATIENT NAME: Katerina Mederos MR #: [id number] BIRTHDATE: 1950 ATTENDING: Benito Higgins MD ORDER #: [id number] CAREER DEVELOPER: Den Millard and Shaylee Huff STATUS: inpatient INDICATIONS: The patient is a 66 yr old female here for an EGD due to epigastric abdominal pain PROCEDURE PERFORMED: EGD w/ biopsy MEDICATIONS: None and Per Anesthesia. TOPICAL ANESTHETIC: CONSENT: The patient understands the risks and benefits of the procedure and understands that these risks include, but are not limited to: sedation, allergic reaction, infection, perforation and/or bleeding. Alternative means of evaluation and treatment include, among others: physical exam, x-rays, and/or surgical intervention. The patient elects to proceed with this endoscopic procedure. medical equipment was checked for proper function. Hand hygiene and appropriate measures for infection prevention was taken. After the risks, benefits and alternatives of the procedure were thoroughly explained, Informed consent was verified, confirmed and timeout was successfully executed by the treatment team. The patient was anesthetized with topical anesthesia and the Pentax [id number] endoscope was introduced through the mouth and advanced to the second portion of the duodenum. Retroflexed views revealed no abnormalities The gastroscope was then slowly withdrawn and removed. ESOPHAGUS: The mucosa of the esophagus appeared normal. STOMACH: Two non-bleeding, shallow and clean-based ulcers ranging between 3-5 mm in size were found in the gastric antrum. Biopsies were taken at edge of the ulcers. DUODENUM: Mild duodenal inflammation was found in the bulb and second portion of the duodenum. ADVERSE EVENTS: There were no complications. IMPRESSIONS: 1. The esophagus appeared normal 2. Two ulcers ranging between 3-5 mm in size were found in the gastric antrum; biopsies were taken 3. Duodenal inflammation was found in the bulb and second portion of the duodenum 4. Retroflexed views revealed no abnormalities RECOMMENDATIONS: 1. Await biopsy results. Biopsy results will not be ready for 7-10 days. If you don't hear from us in two weeks, call our office for biopsy results. 2. Anti-reflux regimen 3. Continue PPI 4. Avoid NSAIDS PATIENT CONDITION: stable DISPOSITION: Inpatient REPEAT EXAM: Return 8 weeks EGD pending biopsy results Benito Higgins MD eSigned: Benito Higgins MD 01/19/2017 12:33 PM cc: PATIENT NAME: Rosa M, Katerina A MR#: [id number]
[2017-01-19] MEDS ORDERED: DO NOT ADM ANY ANTICOAGULANT DRUGS PRN (13:15)
[2017-01-19] MEDS ORDERED: PANT40TA3 PO ×3 (16:45→21:37)
[2017-01-19] MEDS ORDERED: NITR1SUB3 SL ×3 (16:45→21:37)
--- NOTE | 2017-01-19 16:47 | HHI.DCPOC ---
Discharge Care Plan Diagnosis: (1) Peptic ulcer disease (2) Coronary atherosclerosis of [place] coronary vessel (3) Hypertension (4) History of prediabetes (5) Presence of stent in coronary artery in patient with coronary artery disease (6) Smoker Goals to Promote Your Health * To prevent worsening of your condition and complications * To maintain your health at the optimal level Directions to Meet Your Goals Take your medications as prescribed Follow your dietary instruction Follow activity as directed Keep your appointments as scheduled Take your immunizations and boosters as scheduled If your symptoms worsen call your PCP, if no PCP go to Urgent Care Center or Emergency Room Smoking is Dangerous to Your Health. Avoid second hand smoke Call the 24-hour hour crisis hotline for domestic abuse at Elliot Hanna MD R1 Jan 19, 2017 4:47 pm
--- NOTE | 2017-01-19 17:10 | HHI.FPPN ---
Subjective Remarks No acute events overnight. Went for EGD this morning which showed ulcers. She feels much better re: CP, N/V, abdominal pain. (Elliot Hanna MD R1) Objective Vitals Vital Signs Date Time Temp Pulse Resp B/P Pulse Ox O2 Delivery O2 Flow Rate FiO2 01/19/17 15:00 97.8 64 18 131/79 97 01/19/17 15:00 62 01/19/17 14:00 56 01/19/17 13:38 97.9 57 18 136/72 99 01/19/17 12:46 57 20 137/70 100 01/19/17 12:31 97.6 59 20 139/68 99 01/19/17 11:00 52 01/19/17 09:00 56 01/19/17 08:50 99 01/19/17 08:00 50 01/19/17 07:40 98.4 50 18 129/64 99 01/19/17 07:00 51 01/19/17 05:00 56 01/19/17 04:14 98.0 56 16 124/62 97 01/19/17 04:00 50 01/19/17 03:00 53 01/19/17 02:00 58 01/19/17 01:00 48 01/19/17 00:00 52 01/18/17 23:11 98.2 56 16 118/60 96 01/18/17 23:00 55 01/18/17 22:00 50 01/18/17 21:00 58 01/18/17 20:25 98.2 54 16 136/71 97 01/18/17 20:00 68 01/18/17 19:00 57 01/18/17 18:00 57 01/18/17 17:00 58 I/O 01/18/17 01/18/17 01/18/17 01/19/17 01/19/17 01/19/17 07:00 15:00 23:00 07:00 15:00 23:00 Intake Total 980 ml 1280 ml 1040 ml Output Total 1 ml 1500 ml 1101 ml Balance 979 ml -220 ml -61 ml Intake Oral 500 ml 1280 ml 240 ml IV Total 480 ml 800 ml Output Urine Total 1500 ml 1100 ml Stool Total 1 ml 1 ml # Voids 3 # Bowel Movements 0 (Elliot Hanna MD R1) Result Diagram: 01/19/1760001/19/17 06 Objective Remarks GENERAL: Sitting up in chair, NAD CARDIOVASCULAR: Regular rate and rhythm without murmurs, gallops, or rubs. Minimal DP pulses. Normal radial pulses. RESPIRATORY: Clear to auscultation. Breath sounds equal bilaterally. No wheezes , rales, or rhonchi. GASTROINTESTINAL: Soft, NDNT. No masses, organomegaly. NEUROLOGICAL: Awake and alert. Grossly nonfocal. (Elliot Hanna MD R1) A/P Assessment and Plan 66 year old female with a significant cardiovascular history presents with lower chest pain, epigastric pain, indigestion. DDx is broad, and includes inferior MD, indigestion/GERD, costochondritis, cholecystitis, pancreatitis, AAA rupture, and esophageal/peptic ulcer. Lipase jumped up to 1314 overnight. Discharge Planning Pending CT abdomen/pelvis (Elliot Hanna MD R1) Attending Attestation Patient seen, examined, and discussed with resident team. I agree with assessment and management as documented and discussed with me. Pt seen today after EGD. She is aware that she has gastric ulcers - biopsies pending. She feels much better today, and is tolerating PO. Await CT abd/pelvis as ordered by GI. (Karol Fox MD) Problem List: (1) Peptic ulcer disease Status: Acute Plan: EGD done 01/19/17 showing peptic ulcers. Biopsies taken and pending. This is likely the cause of the patient's chest/abdominal pain a/w N/V, though acute pancreatitis still on differential given elevated lipase. Patient currently tolerating diet without issue, pain resolved - GI consulted, appreciate recs - Continue PPI - F/u in 8 weeks - CT Abdomen / Pelvis - if negative or solely pancreatitis, discharge with regimen above (2) Presence of stent in coronary artery in patient with coronary artery disease Status: Chronic Plan: Initial troponin of 0.07, 0.06. Third troponin pending. EKG with stable LBBB, left axis deviation, no ST changes Cardiac cath done --> mild diffuse CAD, no blockages requiring revascularization - Consulted cardiology, Dr. Baumann, appreciate recommendations - Continue aspirin, Plavix - Continue statin - Continue beta ehsan (3) Hypothyroidism Status: Chronic Plan: History of hypothyroidism, presenting with fatigue for the past few weeks. TSH normal. - Continue levothyroxine (4) Hypertension Status: Chronic Plan: - Continue beta ehsan - Vasotec PRN (5) History of prediabetes Status: Chronic Plan: Outpatient follow-up (6) Smoker Status: Chronic Plan: - Counselled on smoking cessation dw Dr. Fox (Elliot Hanna MD R1) Problem Qualifiers (1) Hypothyroidism: Qualified Code: E03.9 - Hypothyroidism, unspecified type (2) Hypertension: Qualified Code: I10 - Essential hypertension Elliot Hanna MD R1 Jan 19, 2017 17:10 Karol Fox MD Jan 19, 2017 20:37
[2017-01-19] MEDS ORDERED: IOHEXOL 350 MG/ML 10 ML VIAL (for RAD DIAG) IV ONE (18:45)
--- NOTE | 2017-01-19 19:49 | RADRPT ---
EXAM DATE/TIME: 01/19/2017 18:27 [place] COMPARISON: No previous studies available for comparison. INDICATIONS : Epigastric pain. IV CONTRAST: 94 cc Omnipaque 350 (iohexol) IV ORAL CONTRAST: Prescribed oral contrast ingested. RADIATION DOSE: 9.96 CTDIvol (mGy) MEDICAL HISTORY : Cardiovascular disease. Aneurysm, abdominal. Diabetes mellitus type 2. Hyperten ron. Endometriosis. SURGICAL HISTORY : Tubal ligation. ENCOUNTER: Initial ACUITY: 4 - 6 days PAIN SCALE: 1/10 LOCATION: Epigastric. TECHNIQUE: Volumetric scanning of the abdomen and pelvis was performed. Using automated exposure control and adjustment of the mA and/or kV according to patient size, radiation dose was kept as low as reasonably achievable to obtain optimal diagnostic quality images. FINDINGS: There is an infrarenal abdominal aortic aneurysm measuring 3.9 x 3.8 cm in diameter and extending over a 5.4 cm length. There is some aneurysmal dilatation of the common iliac arteries be ing worse on the left. There are scattered atherosclerotic calcifications seen throughout the arteri al system. The patient does appear to have increased soft tissue density seen around the left common femoral artery. There appear to be clips in this region. Some of this appearance in this region is likely post surgical. It appears the superficial femoral artery on the left is occluded. The liver, spleen, pancreas, and kidneys appear grossly normal. There is some mild prominence of the adrenal glands which may represent some hyperplasia. No focal adrenal mass is seen. There is some thickening of the sigmoid colon. This is nonspecific. No significant inflammatory change is seen. T his may be secondary to lack of distension. There are a few potential diverticula seen in this regio n. The pelvic structures are otherwise grossly intact. The visualized portions of the lungs are jim ar. There is a focal area of sclerosis at the medial left ilium likely related to a bone island. Thi s abuts the sacroiliac joint. There is some mild degenerative change at the lower lumbar spine. CONCLUSION: 1. Infrarenal abdominal aortic aneurysm measuring 3.9 cm. 2. Increased soft tissue density around the left common femoral artery with occlusion of the left sup erficial femoral artery. There is increased soft tissue density around the left common femoral arter y is likely postoperative. This should be correlated clinically. Pola Springer MD on January 19, 2017 at 19:30 Board Certified Radiologist. This report was verified electronically.
--- NOTE | 2017-01-21 11:24 | HHI.DS ---
Discharge Summary Admission Date Jan 17, 2017 at 12:49 pm Discharge Date: Jan 19, 2017 Admitting Diagnosis NSTEMI (1) Peptic ulcer disease Diagnosis: Principal Plan: EGD done 01/19/17 showing peptic ulcers. Biopsies taken and pending. This is likely the cause of the patient's chest/abdominal pain a/w N/V, though acute pancreatitis still on differential given elevated lipase. Patient currently tolerating diet without issue, pain resolved - GI consulted, appreciate recs - Continue PPI - F/u in 8 weeks - CT Abdomen / Pelvis - if negative or solely pancreatitis, discharge with regimen above (2) Presence of stent in coronary artery in patient with coronary artery disease Diagnosis: Secondary Plan: Initial troponin of 0.07, 0.06. Third troponin pending. EKG with stable LBBB, left axis deviation, no ST changes Cardiac cath done --> mild diffuse CAD, no blockages requiring revascularization - Consulted cardiology, Dr. Baumann, appreciate recommendations - Continue aspirin, Plavix - Continue statin - Continue beta ehsan (3) Hypothyroidism Diagnosis: Secondary Plan: History of hypothyroidism, presenting with fatigue for the past few weeks. TSH normal. - Continue levothyroxine (4) Hypertension Diagnosis: Secondary Plan: - Continue beta ehsan - Vasotec PRN (5) History of prediabetes Diagnosis: Secondary Plan: Outpatient follow-up (6) Smoker Diagnosis: Secondary Plan: - Counselled on smoking cessation [facility]ants Cardiology - Dr. Baumann GI - Dr. Higgins Procedures EGD - 01/19/17 - Peptic ulcers, non-bleeding Cardiac catheterization - 01/18/17 - Diffuse mild CAD, no lesions requiring revascularization Brief History 66 year old female with a past history significant for IA with stent placement in 2007, PAD, and abdominal aortic aneurysm presents with atypical chest pain. Her symptoms began last with a general feeling of malaise and fatigue, along with indigestion. She has a queasy feeling with nausea and copious clear mucous secretions in the mouth. By Sunday, her symptoms intensified and she started to have chest pain. The pain is located in the lower mid chest and in the epigastric region. The pain started off as intermittent but by Sunday became constant and more severe. She also started to develop mild shortness of breath by Sunday. Now the pain is constant. It was 8/10 at its worst, but is currently a 4/10. It is non-exertional. There is no diaphoresis or lightheadedness with it. The pain is worse when she lies flat. She does not notice an association with food. She also notices mild pain in her mid-upper back. She had 2 episodes of diarrhea a few days ago that resolved. She also notes increasing fatigue for the past few weeks and has a history of hypothyroidism. Her last TSH was over a year ago. CBC/BMP: 01/19/17 0601 01/19/17 0601 Significant Findings Laboratory Tests Test 01/19/17 06:01 Monocytes (%) (Auto) 9.6 % (0.0-8.0) Chloride Level 113 MEQ/L (98-107) Estimat Glomerular Filtration 68 ML/MIN (>89) Rate Aspartate Amino Transf 12 U/L (15-37) (AST/SGOT) Total Protein 6.0 GM/DL (6.4-8.2) Albumin 3.0 GM/DL (3.4-5.0) Imaging Last Impressions Abdomen/Pelvis CT 01/19/17 0000 Signed Impressions: Service Date/Time: Thursday, January 19, 2017 18:27 - CONCLUSION: 1. Infrarenal abdominal aortic aneurysm measuring 3.9 cm. 2. Increased soft tissue density around the left common femoral artery with occlusion of the left superficial femoral artery. There is increased soft tissue density around the left common femoral artery is likely postoperative. This should be correlated clinically. Pola Springer MD Gall Bladder Ultrasound 01/17/17 1742 Signed Impressions: Service Date/Time: Tuesday, January 17, 2017 18:23 - CONCLUSION: Normal examination. Pola Barrow MD Chest X-Ray 01/17/17 1054 Signed Impressions: Service Date/Time: Tuesday, January 17, 2017 11:00 - CONCLUSION: 1. No acute cardiopulmonary findings. Jeff Shahid MD PE at Discharge GENERAL: Sitting up in chair, NAD CARDIOVASCULAR: Regular rate and rhythm without murmurs, gallops, or rubs. Minimal DP pulses. Normal radial pulses. RESPIRATORY: Clear to auscultation. Breath sounds equal bilaterally. No wheezes , rales, or rhonchi. GASTROINTESTINAL: Soft, NDNT. No masses, organomegaly. NEUROLOGICAL: Awake and alert. Grossly nonfocal. Hospital Course Admitted for chest/abdominal pain initially concerning for ACS given history of CAD. Catheterization performed 01/18/17 demonstrating diffuse mild CAD but no blockage requiring revascularization. Suspicion for GI pathology increased due to N/V and elevated lipase. Treatment with PPI initiated. EGD performed 01/20/17 and confirmed peptic ulcer disease. CT abdomen pelvis showing chronic changes, no acute pathology. GI recommended continuing PPI and follow up in 8 weeks. Patient tolerated diet after EGD and was cleared for discharge. Also given nitroglycerin as needed for anginal symptoms. Pt Condition on Discharge: Stable Discharge Disposition: Discharge Home Discharge Instructions DIET: Follow Instructions for: Heart Healthy Diet Activities you can perform: Weight Bearing as Ada Follow up Referrals: Gastroenterology - 2 Months with Benito Higgins MD New Medications: Nitroglycerin SL (Nitroglycerin SL) 0.4 Mg Subl 0.4 MG SL DIRECTED ONE TABLET UNDER THE TONGUE NEEDED FOR CHEST PAIN. MAY REPEAT EVERY FIVE MINUTES FOR A TOTAL OF 3 DOSES OR CALL 911 IF NO RELIEF PRN CHEST PAIN #100 Ref 0 TAB.SL Pantoprazole (Pantoprazole) 40 Mg Tab 40 MG PO BID Take one tablet twice daily #60 TAB Continued Medications: Aspirin (Aspirin) 81 Mg Chew 81 MG CHEW DAILY Ref 0 TAB Clopidogrel (Plavix) 75 Mg Tab 75 MG PO DAILY Blood Clot Prevention #30 Ref 0 TAB Diphenhydramine (Benadryl) 25 Mg Cap 25 MG PO Q12H PRN ALLERGIES Ref 0 CAP Erythromycin (Acne Aid) Topical (Erythromycin Topical) 2 % Gel 1 APPLIC TOPICAL DAILY rosacea #1 Ref 3 TUBE Isosorbide Mononitrate (Imdur) 60 Mg Tab 60 MG PO DAILY Chest Pain #30 TAB Levothyroxine (Levothyroxine) 50 Mcg Tab 50 MCG PO DAILY Thyroid #30 Ref 0 TAB Losartan (Losartan) 25 Mg Tab 25 MG PO DAILY Blood Pressure Management #30 Ref 0 TAB Metoprolol Tartrate (Metoprolol Tartrate) 25 Mg Tab 25 MG PO BID #60 Ref 0 TAB Rosuvastatin (Crestor) 40 Mg Tab 40 MG PO DAILY Cholesterol Management #30 Ref 0 TAB Discontinued Medications: Diphenhydramine (Benadryl Allergy) 25 Mg Tab 25 MG PO Q6H PRN ALLERGIES Ref 0 TAB Levofloxacin (Levaquin) 750 Mg Tab 750 MG PO DAILY Infection Ref 0 TAB Elliot Hanna MD R1 Jan 21, 2017 11:24 am
[2017-01-25] MEDS ORDERED: ACYC800T PO (16:18)
== END 2017-01-19 21:39 | disposition home or self-care (01) | DRG 280 ==
LOC: PHED 10:35 → PHEDA 12:49 → HCIN 15:31
PROVIDERS: ADMIT Family Medicine; ATTEND Family Medicine
PROC: B2111ZZ Fluoroscopy of Multiple Coronary Arteries using Low Osmolar Contrast (ICD-10-PCS; 2017-01-18)
PROC: B2151ZZ Fluoroscopy of Left Heart using Low Osmolar Contrast (ICD-10-PCS; 2017-01-18)
PROC: 4A023N7 Measurement of Cardiac Sampling and Pressure, Left Heart, Percutaneous Approach (ICD-10-PCS; principal; 2017-01-18 07:30)
DX: I21.4 Non-ST elevation (NSTEMI) myocardial infarction (principal); K85.90 Acute pancreatitis without necrosis or infection, unspecified; E11.9 Type 2 diabetes mellitus without complications; I44.7 Left bundle-branch block, unspecified; K27.9 Peptic ulcer, site unspecified, unspecified as acute or chronic, without hemorrhage or perforation; I10 Essential (primary) hypertension; I73.9 Peripheral vascular disease, unspecified; I25.110 Atherosclerotic heart disease of native coronary artery with unstable angina pectoris; E78.5 Hyperlipidemia, unspecified; I25.2 Old myocardial infarction; Z95.5 Presence of coronary angioplasty implant and graft; E06.3 Autoimmune thyroiditis; K21.9 Gastro-esophageal reflux disease without esophagitis; F17.210 Nicotine dependence, cigarettes, uncomplicated
CPT/HCPCS: 71010; 74177; 76705; 80048; 80053; 80076; 81001; 82550; 82948; 83690; 83735; 83880; 84443; 84484; 85002; 85025; 85610; 85730; 88305; 88312; 90732; 93005; 93458; 96365; 96375; C1769; C1893; J1644; J1650; J1815; J2250; J2270; J2405; J3010; J7030; J7040; Q9963; Q9967

== ENCOUNTER 2018-12-02 05:45 | Inpatient (IN) ==
[2018-12-02] MEDS ORDERED: Metoprolol Tartrate 25 MG Tablet PO ONE (06:15)
[2018-12-02] MEDS ORDERED: Chlorhexidine Gluconate 2% 1 Pack (2 Cloths) TOPICAL ONE (06:15)
[2018-12-02] MEDS ORDERED: Sodium Chlor 0.9% Inj 500 ML IV.CONT ONE ×2 (06:15→07:28)
[2018-12-02] MEDS ORDERED: Sodium Chlor 0.9% Inj 250 ML ONE (06:42)
[2018-12-02] MEDS ORDERED: Bupivacaine PF 0.5% Inj 10 ML Vial ONE (06:43)
[2018-12-02] MEDS ORDERED: Heparin/NS PF Inj 500 ML ONE ×2 (06:43→09:47)
[2018-12-02] MEDS ORDERED: Thrombin Topical Soln 20,000 UNIT Vial TOPICAL ONE (06:44)
[2018-12-02] MEDS ORDERED: Protamine Sulfate Inj 50 MG/5 ML Vial ONE (06:44)
[2018-12-02] MEDS ORDERED: Heparin 10,000 UNITS/10 ML Vial (for IV use) ONE (06:45)
--- NOTE | 2018-12-02 07:23 | P.HPVS ---
History of Present Illness Chief Complaint: AAA, R LE claudication History of Present Illness: 68 yo female with AAA that is small but has grown nearly a cm in past year. Also has R LE claudication. Prior L groin reconstruction by another surgeon. No abdominal pain, new back pain. - Inpatient Certification If this patient has been admitted as an Inpatient: I certify that the inpatient services were ordered in accordance with Medicare regulations governing the order. This includes certification that hospital inpatient services are reasonable and necessary and in the case of services not specified as inpatient-only under 42 CFR 419.22(n), that they are appropriately provided as inpatient services in accordance to with the 2-midnight benchmark under 43 CFR 412.3(e) Estimated Total Length of Stay (Days): 2 Plans for Post Hospital Care: Home Review of Systems All other systems reviewed negative except as stated [facility] - History History Provided By: Patient - Medical History Medical History: Medical History (Last Reviewed 12/02/18 @ 07:21 by Dre Beaver MD) AAA (abdominal aortic aneurysm) Atherosclerosis High cholesterol History of trigger finger Hx of endometriosis Hx of gastric ulcer Hypertension Hypothyroidism NSTEMI (non-ST elevated myocardial infarction) Wears glasses - Surgical History Surgical History: Surgical History (Last Reviewed 12/02/18 @ 07:21 by Dre Beaver MD) H/O exploratory laparotomy History of aortoiliofemoral vascular bypass Hx of cardiac catheterization Hx of cervical spinal arthrodesis Hx of tubal ligation - Tobacco History Second Hand Smoke Exposure: Yes Tobacco Use In Past 30 Days: Yes Smoking Status: Current every day smoker Tobacco Type: Cigarettes - Alcohol History How Often Do You Have a Drink Containing Alcohol: 4 or more times a week - Substance Use History Substance History: No History of Abuse - Travel History Recent Travel in the [place] Within the Last 8 Weeks: No Recent Travel Out of the Country Within the Last 8 Weeks: No Medications and Allergies Active Medications: Active Medications Lactated Ringer's (Lr 1000 Ml Inj) 1,000 mls @ 30 mls/hr IV.CONT .Q24H ONE Stop: 12/03/18 06:14 Sodium Chloride (Ns Inj) 500 mls @ 30 mls/hr IV.CONT .[id number] ONE Stop: 12/02/18 22:54 Allergies Allergy/AdvReac Type Severity Reaction Status Date / Time amoxicillin Allergy Severe Hives, Verified 12/02/18 06:47 BURNING, HOT FLASHES naproxen Allergy Severe Gastrointestinal Verified 12/02/18 06:47 Upset penicillin G Allergy Severe Hives, Verified 12/02/18 06:47 BURNING, HOT FLASHES propoxyphene Allergy Severe NAUSEA/VOMI Verified 12/02/18 06:47 TING Home Medications Medication Instructions Recorded Confirmed Type aspirin [Adult Low Dose Aspirin] 81 mg PO DAILY 11/29/18 12/02/18 History diphenhydramine HCl 25 mg PO HS PRN 11/29/18 12/02/18 History erythromycin-benzoyl peroxide 1 applic TOPICAL DAILY 11/29/18 12/02/18 History losartan 50 mg PO DAILY 11/29/18 12/02/18 History metoprolol tartrate 25 mg PO BID 11/29/18 12/02/18 History rosuvastatin 40 mg PO DAILY 11/29/18 12/02/18 History Physical Exam Vital Signs / I&O: Vital Signs 12/02/18 06:50 Temperature 98.2 F Pulse Rate 66 Respiratory Rate 20 Blood Pressure 163/88 H Pulse Oximetry 99 Intake & Output 12/01/18 12/02/18 12/02/18 18:59 06:59 18:59 Weight 52.7 kg Other: Weight On Admission 52.7 kg Neuro: alert, no distress HEENT: NC/AT Neck: no JVD Heart: reg rate Lungs: clear Abdomen: nontender Vascular: no palpable pedal pulses Hct 49 plt 221 INR 1.0 creatinine 1.0 CTA Reviewed Caprini VTE Risk Assessment Caprini VTE Risk Assessment: No/Low Risk (score <= 1) (intraop heparin) Caprini Risk Assessment Model: Point Value = 1 Point Value = 2 Point Value = 3 Point Value = 5 Age 41-60 Minor surgery BMI > 25 kg/m2 Swollen legs Varicose veins or History of unexplained or recurrent spontaneous Oral contraceptives or hormone replacement Sepsis (< 1 month) Serious lung disease, including pneumonia (< 1 month) Abnormal pulmonary function Acute myocardial infarction Congestive heart failure (< 1 month) History of inflammatory bowel disease Medical patient at bed rest Age 61-74 Arthroscopic surgery Major open surgery (> 45 min) Laparoscopic surgery (> 45 min) Malignancy Confined to bed (> 72 hours) Immobilizing plaster cast Central venous access Age >= 75 History of VTE Family history of VTE Factor V Leiden Prothrombin [id number] Lupus anticoagulant Anticardiolipin antibodies Elevated serum homocysteine Heparin-induced thrombocytopenia Other congenital or acquired thrombophilia Stroke (< 1 month) Elective arthroplasty Hip, pelvis, or leg fracture Acute spinal cord injury (< 1 month) Prophylaxis Regimen: Total Risk Factor Score Risk Level Prophylaxis Regimen 0-1 Low Early ambulation 2 Moderate Order ONE of the following: *Sequential Compression Device (SCD) *Heparin 5000 units SQ BID 3-4 Higher Order ONE of the following medications: *Heparin 5000 units SQ TID *Enoxaparin/Lovenox 40 mg SQ daily (WT < 150 kg, CrCl > 30 mL/min) *Enoxaparin/Lovenox 30 mg SQ daily (WT < 150 kg, CrCl > 10-29 mL/min) *Enoxaparin/Lovenox 30 mg SQ BID (WT < 150 kg, CrCl > 30 mL/min) AND/OR *Sequential Compression Device (SCD) 5 or more Highest Order ONE of the following medications: *Heparin 5000 units SQ TID (Preferred with Epidurals) *Enoxaparin/Lovenox 40 mg SQ daily (WT < 150 kg, CrCl > 30 mL/min) *Enoxaparin/Lovenox 30 mg SQ daily (WT < 150 kg, CrCl > 10-29 mL/min) *Enoxaparin/Lovenox 30 mg SQ BID (WT < 150 kg, CrCl > 30 mL/min) AND *Sequential Compression Device (SCD) Assessment and Plan - Assessment (1) AAA (abdominal aortic aneurysm) without rupture Code(s): I71.4 - Abdominal aortic aneurysm, without rupture Status: Acute - Plan R groin reconstruction and EVAR To OR PACU and CPCU post-op : [phone]
[2018-12-02] MEDS ORDERED: Esmolol Bolus Inj 100 MG/10 ML Vial IV.PUSH ONE (07:28)
[2018-12-02] MEDS ORDERED: Glycopyrrolate Inj 1 MG/5 ML Syringe IV.PUSH ONE (07:28)
[2018-12-02] MEDS ORDERED: Lidocaine PF 1% Inj 5 ML Syringe OTHER ONE (07:28)
[2018-12-02] MEDS ORDERED: Neostigmine Inj 5 MG/5 ML Syringe IV.PUSH ONE (07:28)
[2018-12-02] MEDS ORDERED: Phenylephrine/NS 1000 MCG/10ML Syringe IV.PUSH ONE (07:28)
[2018-12-02] MEDS ORDERED: Normosol-R pH 7.4 Inj 1,000 ML IV.CONT ONE (07:28)
[2018-12-02] MEDS ORDERED: Bisacodyl 10 MG Supp RECTAL PRN (10:58)
--- NOTE | 2018-12-02 10:58 | P.OP ---
- Preoperative Diagnosis (1) AAA (abdominal aortic aneurysm) without rupture - Postoperative Diagnosis (1) AAA (abdominal aortic aneurysm) without rupture Date of procedure: 12/02/18 Procedure: 1. U/S guided access to L FINISHED METAL REPAIRER 2. Aortogram 3. R EIA to profunda bypass w 8mm Dacron 4. R FINISHED METAL REPAIRER to SFA bypass with 8mm Dacron 5. R ARNULFO PEARL GLUE DRIER (8mm) 6. R EIA PEARL GLUE DRIER (8mm) Implants: Dacron R groin Anesthesia: GETA Surgeon: Dre Beaver MD Multiple Drum Sander Helper: Dre Love Estimated blood loss (mL): 100 IV fluids (mL): 3,000 Urine output (mL): 70 Pathology: none sent Operation and Findings: severe iliac calcific disease
[2018-12-02] MEDS ORDERED: fentaNYL Citrate Inj 100 MCG/2 ML Ampul ONE (11:20)
[2018-12-02] MEDS ORDERED: *morphine SULFATE 4 MG/ML PERIprocedure ONLY ONE ×2 (11:26→13:45)
[2018-12-02] MEDS ORDERED: Morphine Sulfate Inj 2 MG/ML Vial IV.PUSH PRN (11:30)
[2018-12-02] MEDS ORDERED: Iohexol 300 MG/ML 50 ML Vial (for Rad Diag) IVCONTRAST ONE (11:37)
--- NOTE | 2018-12-02 13:30 | MP ---
cc: Dre Beaver MD DATE OF OPERATION: PREOPERATIVE DIAGNOSES: 1. Peripheral arterial occlusive disease with right lower extremity claudication. 2. Abdominal aortic aneurysm. POSTOPERATIVE DIAGNOSES: 1. Peripheral arterial occlusive disease with right lower extremity claudication. 2. Abdominal aortic aneurysm. PROCEDURES: 1. Ultrasound-guided access to the left common femoral artery. 2. Aortogram. 3. Right ilioprofunda bypass with 8 mm Dacron. 4. Right common femoral artery, superficial femoral artery bypass with 8 mm Dacron. 5. Right external iliac artery angioplasty, 8 mm. 6. Right common iliac artery angioplasty, 8 mm. ATTENDING SURGEON: Dre Beaver MD CLOTH DYEING RANGE TENDER SURGEON: Dre Love. ANESTHESIA: General. INDICATIONS FOR PROCEDURE: Ms. Mederos is a 68-year-old lady who has right lower extremity claudication with ABIs in the 0.5 range. She has inflow disease and also a small aneurysm. She was taken to the operating room for a right groin reconstruction and combined EVAR; however, intraoperatively it was found that the compliance of her iliac system, even dilated to 8 mm was such that it would not allow easy passage of an even low profile endovascular AAA device. Angioplasty was done, which made the inflow to the right external iliac artery normal and as such, the EVAR procedure was aborted. Her abdominal aortic aneurysm was only 4.5 cm. DESCRIPTION OF PROCEDURE: Informed consent was obtained from the patient. She was taken to the operating room and placed supine on the operating table. An appropriate timeout was taken to ensure the patient's identity, operative site and planned procedure. The administration of 1 gram of vancomycin was initiated prior to skin incision and will be discontinued after a single preoperative dose. Vancomycin was chosen because of the patient's PENICILLIN ALLERGY. Everyone in the room agreed with timeout and we proceeded. She was prepped from nipples to her knees. Right groin incision was made with a 10-blade and carried down through subcutaneous tissue with electrocautery; common femoral artery, distal external iliac artery, profunda and SFA were all dissected free and encircled with vessel loops. Using the ultrasound, a 21-gauge micropuncture needle was used to access the left common femoral artery. This was exchanged using Seldinger technique for a micropuncture sheath through which was 0.05 STORQ wire was introduced. The micropuncture sheath was exchanged for a 6-Nigerian sheath. This was flushed. The patient was systemically heparinized and throughout the remainder of the case. The ACT was confirmed to be greater than 250. Proximal control of the external iliac artery was obtained with profunda clamp and distal control of the superficial femoral artery and profunda clamps were obtained and profunda femoris artery was obtained with profunda clamps. The entire common femoral artery was resected and end-to-end anastomosis was performed of the external iliac artery with running 5-0 Prolene suture. At the completion, it was flushed and noted to be hemostatic. The graft was bevelled and spatulated and sewn end-to-end to the profunda femoris artery with running 6-0 Prolene suture. Clamps were then reapplied on the graft. A longitudinal graftotomy was made with an 11-blade and extended with Anthony scissors. The 8 mm Dacron was spatulated and sewn end-to-side to the graft with running 5-0 Prolene suture and then end-to-end to a bevelled SFA with a running 6-0 Prolene suture. At completion, it was flushed and noted to be hemostatic. There was no pulse in this graft. A 21-gauge micropuncture needle was used to access the SFA jump graft. This was exchanged using Seldinger technique for a micropuncture sheath through which a 0.05 STORQ wire was introduced. The micropuncture sheath was exchanged for a 6-Nigerian sheath. We were able to navigate the STORQ wire and using a Berenstein catheter up to the aorta and the entire external iliac artery was angioplastied with 7 mm balloon; common iliac artery angioplasty with 8 mm balloon. The wire was exchanged for a Lunderquist wire and the 6-Nigerian sheath was removed. Nisha dilator was used to dilate the graftotomy as well as the external iliac artery up to 16. At this point with multiple attempts and somewhat aggressive maneuvering, the 17-Nigerian sheath was not able to be placed. A 16-Nigerian sheath was then placed into the common femoral artery through the graftotomy and the entire iliac artery was re-angioplastied with an 8 mm balloon for 2 minutes and a contralateral pigtail catheter was placed up into the aorta from the left common femoral artery. An aortogram was obtained. This showed excellent opacification of the common iliac artery and external iliac artery, but again a 17-Nigerian sheath could not be advanced, likely due to the lateral calcific nature of the iliac system. The patient had a normal external iliac artery, common femoral artery pulse and a palpable profunda pulse. The wire, catheter, and sheath were removed and the graftotomy was closed with interrupted 5-0 Prolene suture. There was a Doppler signal in the foot. The heparin reversed with protamine. The wounds were infiltrated with Marcaine and closed with 2-0 Polysorb, 3-0 Polysorb and 4-0 Monocryl. The left 6-Nigerian sheath was removed and manual pressure was held for hemostasis. There were no complications. I was present and scrubbed for the entire procedure. MD DIXON Dunbar/jacob , 12:20 PM , 12:29 PM
[2018-12-02] MEDS: Senna/Docusate Sodium 8.6/50 MG Tablet PO SCH (21:20)
[2018-12-02] MEDS: Acetaminophen 325 MG Tablet PO PRN (21:20)
[2018-12-02] MEDS: Metoprolol Tartrate 25 MG Tablet PO SCH (21:20)
[2018-12-03 04:31] LABS: Hematocrit 36.9 % (35.0-46.0); Hemoglobin 12.2 gm/dL (11.6-15.3); Mean Corpuscular HGB Conc 33.1 % (32.0-36.0); Mean Corpuscular Hemoglobin 30.3 pg (27.0-34.0); Mean Corpuscular Volume 91.3 fL (80.0-100.0); Mean Platelet Volume 9.9 fL (7.0-11.0); Platelet Count 153 th/mm3 (150-450); Red Blood Count 4.04 mil/mm3 (4.00-5.30); White Blood Count 11.9 th/mm3 (4.0-11.0)
[2018-12-03 05:19] LABS: Calcium 7.9 mg/dL (8.5-10.1); Carbon Dioxide 25.8 meq/L (21.0-32.0); Potassium 4.1 meq/L (3.5-5.1)
--- NOTE | 2018-12-03 07:45 | P.PNVS ---
Subjective Post Op Day #: 1 Procedure: R groin, iliac HEALTH PROGRAM ANALYST Subjective/Hospital Course: looks good now pain controlled nauseated last night but better now Objective Vital Signs / I&O: Vital Signs 12/02/18 11:07 12/02/18 11:15 12/02/18 11:30 Temperature 97.3 F L Pulse Rate 81 78 69 Respiratory Rate 15 15 12 Blood Pressure 128/52 L 125/62 122/62 Pulse Oximetry 99 99 96 12/02/18 11:45 12/02/18 12:00 12/02/18 12:15 Temperature Pulse Rate 77 60 65 Respiratory Rate 14 12 14 Blood Pressure 123/66 123/66 120/62 Pulse Oximetry 95 95 94 L 12/02/18 12:25 12/02/18 12:30 12/02/18 14:30 Temperature 97.4 F L Pulse Rate 62 66 Respiratory Rate 15 15 22 Blood Pressure 122/60 135/62 Pulse Oximetry 95 95 12/02/18 15:05 12/02/18 16:00 12/02/18 17:00 Temperature 97.2 F L Pulse Rate 64 68 Respiratory Rate 14 14 15 Blood Pressure 125/61 132/65 Pulse Oximetry 94 L 95 12/02/18 18:08 12/02/18 18:10 12/02/18 19:08 Temperature 97.8 F Pulse Rate 96 H 114 H 100 H Respiratory Rate 20 Blood Pressure 121/70 Pulse Oximetry 97 12/02/18 20:00 12/02/18 21:00 12/02/18 22:00 Temperature 98.4 F Pulse Rate 85 75 80 Respiratory Rate 18 Blood Pressure 140/69 Pulse Oximetry 93 L 12/02/18 23:00 12/02/18 23:46 12/03/18 00:00 Temperature 98.4 F Pulse Rate 64 76 Respiratory Rate 18 18 Blood Pressure 125/60 Pulse Oximetry 94 L 12/03/18 01:00 12/03/18 01:55 12/03/18 04:00 Temperature 98.9 F Pulse Rate 76 68 64 Respiratory Rate 17 Blood Pressure 131/63 Pulse Oximetry 93 L 12/03/18 05:21 12/03/18 07:00 Temperature Pulse Rate 57 L 58 L Respiratory Rate Blood Pressure Pulse Oximetry Intake & Output 12/02/18 12/03/18 12/03/18 18:59 06:59 18:59 Intake Total 4320 / 4320 1340 / 1340 Output Total 720 / 720 850 / 850 Balance 3600 / 3600 490 / 490 Weight 61 kg Intake: IV 1000 / 1000 1000 / 1000 Heparin/NS PF Inj 500 ML @ 0 1000 / 1000 mls/hr .ROUTE .STK-MED ONE Rx#: [id number] NS Inj 250 ML @ 0 mls/hr .ROUTE 0 / 0 .STK-MED ONE Rx#:[id number] LR 1000 mL Inj 1,000 ML @ 63 1000 / 1000 mls/hr IV.CONT .[id number] [facility] Rx# :[id number] Oral 220 / 220 340 / 340 Anesthesia Amount 3100 / 3100 Output: Estimated Blood Loss 100 / 100 Urine Amount (Catheter) 620 / 620 850 / 850 Indwelling Temp Sensing 620 / 620 850 / 850 Catheter Exam: R groin soft, NT foot warm + signals Laboratory Results - last 24 hr 02/18/ 02//03 12/ 06:40 03:59 03:59 WBC 11.9 H RBC 4.04 Hgb 12.2 Hct 36.9 MCV 91.3 MCH 30.3 MCHC 33.1 RDW 13.0 Plt Count 153 D MPV 9.9 Sodium 142 Potassium 4.1 Chloride 110 H Carbon Dioxide 25.8 Anion Gap 6 BUN 12 Creatinine 0.78 Estimated GFR 74 L Random Glucose 134 H Calcium 7.9 L Antibody Screen Negative Assessment and Plan - Assessment (1) AAA (abdominal aortic aneurysm) without rupture Code(s): I71.4 - Abdominal aortic aneurysm, without rupture Status: Acute - Plan POD#1 s/p R groin reconstruction, iliac HEALTH PROGRAM ANALYST 1. OOB TC 2. Normalize 3. Snow out Discharge Planning: likely tomorrow (POD#2)
[2018-12-03] MEDS ORDERED: [UNRECOGNIZED DRUG - OTHER] TOPICAL SCH (09:00)
[2018-12-03] MEDS: Acetaminophen 325 MG Tablet PO PRN ×3 (09:47→20:41)
[2018-12-03] MEDS: Metoprolol Tartrate 25 MG Tablet PO SCH ×2 (09:47→20:43)
[2018-12-03] MEDS: Enoxaparin Inj 40 MG/0.4 ML Syringe SQ SCH (09:47)
[2018-12-03] MEDS: Senna/Docusate Sodium 8.6/50 MG Tablet PO SCH ×2 (09:47→20:42)
[2018-12-04] MEDS: Metoprolol Tartrate 25 MG Tablet PO SCH ×2 (08:48→21:26)
[2018-12-04] MEDS: Senna/Docusate Sodium 8.6/50 MG Tablet PO SCH ×2 (08:49→21:26)
--- NOTE | 2018-12-04 09:06 | P.PNVS ---
Subjective Post Op Day #: 2 Procedure: R groin, iliac COMPUTER OPERATIONS ANALYST Subjective/Hospital Course: 68/F w/ a PMH of PVD Pt s/p RIGHT groin/Iliac Percutaneous Transluminal Angioplasty POD 2 Pt reported she sat in a chair for most of the day now c/o R groin pain Pt reported 4 episodes of diarrhea- shortly after taking Milk of Magnesia Pt c/o lower back discomfort Pt denied nausea, abdominal pain, CP Objective Vital Signs / I&O: Vital Signs 12/03/18 09:00 12/03/18 10:00 12/03/18 11:00 Temperature Pulse Rate 68 78 67 Respiratory Rate Blood Pressure Pulse Oximetry 12/03/18 12:00 12/03/18 13:00 12/03/18 14:00 Temperature 99.3 F Pulse Rate 62 62 60 Respiratory Rate 16 Blood Pressure 147/68 H Pulse Oximetry 95 12/03/18 15:00 12/03/18 16:00 12/03/18 17:00 Temperature 98.8 F Pulse Rate 61 61 74 Respiratory Rate 16 Blood Pressure 138/66 Pulse Oximetry 97 12/03/18 18:00 12/03/18 19:00 12/03/18 20:00 Temperature 98.2 F Pulse Rate 66 73 66 Respiratory Rate 18 Blood Pressure 159/70 H Pulse Oximetry 97 12/03/18 21:00 12/03/18 22:00 12/03/18 23:00 Temperature Pulse Rate 61 66 72 Respiratory Rate Blood Pressure Pulse Oximetry 12/04/18 00:00 12/04/18 01:00 12/04/18 02:00 Temperature 98.3 F Pulse Rate 67 73 74 Respiratory Rate 16 Blood Pressure 136/64 Pulse Oximetry 12/04/18 03:00 12/04/18 04:00 12/04/18 04:57 Temperature 98.9 F Pulse Rate 71 81 85 Respiratory Rate Blood Pressure 128/61 Pulse Oximetry 12/04/18 06:00 12/04/18 07:00 Temperature Pulse Rate 76 87 Respiratory Rate Blood Pressure Pulse Oximetry Intake & Output 12/03/18 12/04/18 12/04/18 18:59 06:59 18:59 Intake Total 720 / 720 450 / 450 Balance 720 / 720 450 / 450 Intake: Oral 720 / 720 450 / 450 Other: # Voids 5 4 Date of Last Bowel Movement 12/03/18 12/03/18 # Bowel Movements 1 Exam: Speech clear/Pt A&OX3/NAD Right groin Prevena wound vac intact w/o swelling or hematoma B LE warm w/ motor intact Palpable LEFT Dorsalis Pedis Biphasic RIGHT Dorsalis pedis/Posterior Tibial Abdomen soft and non tender- + BS Resp even and CTA RRR Assessment and Plan - Assessment (1) AAA (abdominal aortic aneurysm) without rupture Code(s): I71.4 - Abdominal aortic aneurysm, without rupture Status: Acute - Plan POD#2 Pt s/p R groin reconstruction, iliac COMPUTER OPERATIONS ANALYST Plan Hold stool softeners Ordered K Thermia (heating pad) for lower back discomfort Continue PT- OOB/ambulation Continue pain control D/C planning Kemi Suarez NP [facility]/[place] [phone] Discharge Planning: likely this afternoon or tomorrow am (POD#3)
[2018-12-04] MEDS: Enoxaparin Inj 40 MG/0.4 ML Syringe SQ SCH ×2 (10:37→12:00)
[2018-12-04] MEDS: Acetaminophen 325 MG Tablet PO PRN (17:24)
[2018-12-05] MEDS: Acetaminophen 325 MG Tablet PO PRN (02:51)
[2018-12-05 04:57] LABS: Calcium 7.9 mg/dL (8.5-10.1); Carbon Dioxide 23.6 meq/L (21.0-32.0); Potassium 3.7 meq/L (3.5-5.1)
[2018-12-05 05:12] LABS: Hematocrit 37.5 % (35.0-46.0); Hemoglobin 12.8 gm/dL (11.6-15.3); Mean Corpuscular HGB Conc 34.1 % (32.0-36.0); Mean Corpuscular Hemoglobin 30.7 pg (27.0-34.0); Mean Corpuscular Volume 90.2 fL (80.0-100.0); Mean Platelet Volume 10.6 fL (7.0-11.0); Platelet Count 147 th/mm3 (150-450); Red Blood Count 4.16 mil/mm3 (4.00-5.30); Red Cell Distribution Width 13.3 % (11.6-17.2); White Blood Count 10.5 th/mm3 (4.0-11.0)
--- NOTE | 2018-12-05 08:42 | P.PNVS ---
Subjective Post Op Day #: 3 Procedure: R groin, iliac MIME ARTIST Subjective/Hospital Course: Afebrile 68/F w/ a PMH of PVD Pt s/p RIGHT groin/Iliac Percutaneous Transluminal Angioplasty POD 3 Pt doing well this am Pt w/o any episodes of diarrhea Pt denied abdominal/back pain Pt c/o Right thigh discomfort with redness AM labs reviewed Objective Vital Signs / I&O: Vital Signs 12/04/18 09:00 12/04/18 10:00 12/04/18 11:00 Temperature Pulse Rate 78 74 87 Respiratory Rate Blood Pressure Pulse Oximetry 12/04/18 12:00 12/04/18 13:00 12/04/18 14:00 Temperature 98.2 F Pulse Rate 76 84 82 Respiratory Rate Blood Pressure 132/60 Pulse Oximetry 96 12/04/18 15:00 12/04/18 16:00 12/04/18 17:00 Temperature 98.3 F Pulse Rate 70 82 78 Respiratory Rate Blood Pressure 128/64 Pulse Oximetry 95 12/04/18 18:00 12/04/18 19:00 12/04/18 20:00 Temperature 98.3 F Pulse Rate 77 79 69 Respiratory Rate 18 Blood Pressure 149/72 H Pulse Oximetry 96 12/04/18 21:00 12/04/18 22:00 12/04/18 23:00 Temperature 98.1 F Pulse Rate 68 64 65 Respiratory Rate 18 Blood Pressure 130/69 Pulse Oximetry 98 12/05/18 00:00 12/05/18 01:00 12/05/18 02:00 Temperature Pulse Rate 72 76 74 Respiratory Rate Blood Pressure Pulse Oximetry 12/05/18 03:00 12/05/18 04:00 12/05/18 05:00 Temperature 98 F Pulse Rate 74 74 73 Respiratory Rate 16 Blood Pressure 124/70 Pulse Oximetry 12/05/18 06:00 Temperature Pulse Rate 73 Respiratory Rate Blood Pressure Pulse Oximetry Intake & Output 12/04/18 12/05/18 12/05/18 18:59 06:59 18:59 Intake Total 975 / 975 480 / 480 Balance 975 / 975 480 / 480 Weight 59 kg Intake: Oral 975 / 975 480 / 480 Other: # Voids 3 3 Date of Last Bowel Movement 12/03/18 12/05/18 # Bowel Movements 0 2 Exam: Speech clear/Pt A&OX3/NAD Right groin Prevena wound vac intact w/o swelling or hematoma Erythema present to R medial upper thigh, non tender to deep palpation B LE warm w/ motor intact Palpable LEFT Dorsalis Pedis Biphasic RIGHT Dorsalis pedis/Posterior Tibial Abdomen soft and non tender- + BS Resp even and CTA RRR Laboratory Results - last 24 hr 12/05/18 12/05/18 04:00 04:00 WBC 10.5 RBC 4.16 Hgb 12.8 Hct 37.5 MCV 90.2 MCH 30.7 MCHC 34.1 RDW 13.3 Plt Count 147 L MPV 10.6 Hematology Comments Sodium 141 Potassium 3.7 Chloride 109 H Carbon Dioxide 23.6 Anion Gap 8 BUN 10 Creatinine 0.77 Estimated GFR 75 L Random Glucose 93 Calcium 7.9 L Assessment and Plan - Assessment (1) AAA (abdominal aortic aneurysm) without rupture Code(s): I71.4 - Abdominal aortic aneurysm, without rupture Status: Acute - Plan POD#3 Pt s/p R groin reconstruction, iliac MIME ARTIST Pt c/o redness and discomfort to R thigh- Probable post surgical discomfort vs skin sensitivity to prevena tape Plan Pt clear for d/c this am Arranged out pt f/u for Sunday12/09/18 for Prevena wound vac removal Discussed and reviewed post operative care and management Questions answered Kemi Suarez NP [facility]/[employer] [phone] Discharge Planning: likely this afternoon or tomorrow am (POD#3)
[2018-12-05 09:07] VITALS: BP 115/90; PULSE 77; RESP 18; TEMP 98.2; O2SAT 95
--- NOTE | 2018-12-05 09:10 | P.DS ---
Discharge Summary - Admission Date 12/02/18 05:45 - Admission Diagnosis (1) PVD (peripheral vascular disease) with claudication - Discharge Date 12/05/18 - Discharge Diagnosis (1) PVD (peripheral vascular disease) Status: Acute - Summary Brief History from admission: 68 yo female with AAA that is small but has grown nearly a cm in past year. Also has R LE claudication. Prior L groin reconstruction by another surgeon. No abdominal pain, new back pain. Procedure: R groin, iliac COMPENSATION ADMINISTRATOR Significant Findings: Speech clear/Pt A&OX3/NAD Right groin Prevena wound vac intact w/o swelling or hematoma B LE warm w/ motor intact Palpable LEFT Dorsalis Pedis Biphasic RIGHT Dorsalis pedis/Posterior Tibial Abdomen soft and non tender- + BS Resp even and CTA RRR Pt denied claudication or rest pain Abnormal Lab Results 12/05/18 12/05/18 04:00 04:00 WBC 10.5 RBC 4.16 Hgb 12.8 Hct 37.5 MCV 90.2 MCH 30.7 MCHC 34.1 RDW 13.3 Plt Count 147 L MPV 10.6 Hematology Comments Sodium 141 Potassium 3.7 Chloride 109 H Carbon Dioxide 23.6 Anion Gap 8 BUN 10 Creatinine 0.77 Estimated GFR 75 L Random Glucose 93 Calcium 7.9 L Hospital Course: 68 yo female with AAA (that is small but has grown nearly a cm in past year) and PMH of PVD w/ short distance R LE claudication. Prior L groin reconstruction by another surgeon (Dr Watson) No prior complaints of acute abdominal/Back pain Pt s/p RIGHT groin/Iliac Percutaneous Transluminal Angioplasty Pt did well post operatively w/ reports of expected R groin discomfort Pt reported 4 episodes of diarrhea- shortly after taking Milk of Magnesia Pt c/o mild lower back discomfort post sitting in a chair most of the day- Pain relieved with a heating pad Pt denied nausea, abdominal pain, CP Pt has been ambulating well and is w/o c/o claudication POD 3 Pt w/o any episodes of diarrhea Pt denied abdominal/back pain Pt c/o Right thigh discomfort with redness AM labs reviewed - unremarkable Pt cleared for d/c and will RTC on POD 7 for a wound vac removal PDMP was queried and no prior narcotic prescription found. Given Rx for 3 days of narcotics for acute post-operative pain. - Discharge Instructions Any questions or concerns: Call [facility] at [facility] [phone] Discharge Plan - Discharge Disposition Patient Disposition: 01 Discharge Home - Discharge Condition Condition: Good - Discharge Order Discharge Orders: Discharge Order (Routine); Ordered 12/05/18 Ordered By: Kemi Suarez - Physicians Team Primary Care Provider: Kiel Ramos Attending Provider: Dre Beaver Other Providers: Perico Baumann MD - Rxs /Orders / Referrals /Forms Prescriptions: New clopidogrel [Plavix] 75 mg Tablet 75 mg PO DAILY Qty: 30 RF: 3 oxycodone-acetaminophen [Percocet] 2.5-325 mg Tablet 1 tab PO Q4-6H PRN (Reason: pain) Qty: 20 RF: 0 Continue aspirin [Adult Low Dose Aspirin] 81 mg Tablet,Delayed Release (Dr/Ec) 81 mg PO DAILY diphenhydramine HCl 25 mg Tablet 25 mg PO HS PRN (Reason: Insomnia) erythromycin-benzoyl peroxide 3-5 % Gel 1 applic TOPICAL DAILY losartan 25 mg Tablet 50 mg PO DAILY metoprolol tartrate 25 mg Tablet 25 mg PO BID rosuvastatin 40 mg Tablet 40 mg PO DAILY Referrals: Kiel Ramos MD [Primary Care Provider] - See Instructions Dre Beaver MD [Physician] - See Instructions (Your wound vac removal appointment is scheduled on SUNDAY (post op day 7) 12/09 at 11:30 Your Surveillance SU is scheuled on 12/16/18 at 11:00 Your post op follow up w/ a CTA A/P is scheduled on 12/20/18 at 10:45- Please obtain your CTA prior to your F/U appt ) - Discharge Instructions Patient Printed Instructions: Peripheral Vascular Disease (GEN), Peripheral Vascular Angioplasty (GEN) - Post Discharge Care Plan Care Plan Goals: Discharge Care Plan Goals After Vascular Surgery Contact: Please call [phone] if you have any problems or have questions regarding your hospitalization. Directions to Meet Your Goals: 1. Diet: * You may resume a regular diet as you were eating at home before your admission. 2. Activity: * Increase your activity level gradually. * Keep surgical extremities elevated when at rest. This will help limit the swelling, bruising and discomfort normally present after surgery. * Walking is a good form of light exercise. Go for a walk at least 3 times per day. * No heavy lifting (lifting over 10 pounds) for at least 4 weeks from surgery. * Check with your surgeon to ensure when you are cleared for heavy lifting and full-intensity exercising. * Your strength will gradually improve. * No driving or operating motorized vehicles while on prescription pain medications. * No swimming until wounds fully healed. * Return to work when cleared by MD/AMANDA/DAT. 3. Bathing: Shower daily. * Gently let soap and water run over your incision and pat dry. Do not scrub the incision/wound. * Don't soak in a bath or submerge your incision in water until your incision is healed and evaluated by your physician at follow-up (usually two weeks). 4. Wound Care: INCISION SITE CARE INSTRUCTIONS: * You may leave your incision open to air. * Keep your incision clean and dry, unless showering. See above. * Moisture near the incision will cause the wound to open. * No lotions, creams, ointments, or powders on incisions until they are well- healed. * If you have glue over the incision(s), allow it to fall off naturally in 1-3 weeks * If present, cesar/sutures will be removed 2-3 weeks after surgery during your follow-up clinic visit. * If present, change dressing/bandage when soaked/soiled as needed. * Observe wound daily, checking for signs and symptoms of infection including: foul odor, drainage from the incision, increased redness, increased pain at incision, or increased swelling. 5. Pain Control: Expect post-operative pain for 1-4 weeks after surgery. Your pain will improve gradually. * You may have been provided with a prescription for pain medication. Please take as directed, and be aware of side effects such as drowsiness, constipation and mild stomach discomfort. Pain pills on an empty stomach can cause nausea , so eat a small amount of food, such as crackers, when taking these pills. * Take [id number] stool softeners (Colace or Senna) with your prescribed pain medication. * Acetaminophen (500mg every 6 hours) or Ibuprofen (400mg every 6 hours) may be used in conjunction with narcotics to relieve pain. DO NOT take more than 4 grams (4000mg) of Tylenol in one day, as this can harm your liver. DO NOT take ibuprofen IF: you have an allergy to non-steroidal anti-inflammatory medications, you are taking Coumadin, you have been told you have kidney problems, or you have a history of gastrointestinal bleeding or ulcers. DO NOT take more than 3.2 grams (3200mg) of ibuprofen in one day. * You may also find relief from using heat packs or pads or ice packs. 6. Bowel Regimen for Constipation: * People who undergo surgery are likely to develop post-operative constipation. Exposure to narcotics and changes in diet, fluid intake, and physical activity are known contributors to constipation. We recommend routine stool softeners and/ or laxatives after surgery for most patients. Start by taking one medication. You can increase as directed to relieve constipation. Stop taking these medications if you develop diarrhea. These medications are available over-the- counter and do not require a prescription: * Colace is a stool softener. We recommend starting at 100mg orally twice per day as needed for soft stools and increase to a maximum of 200mg twice daily as needed. * Senna is a laxative that works by keeping water in the intestine to help stool move along the intestinal tract. Take 1 tablet daily as needed for soft stool and increase to a maximum of 2 tablets twice daily as needed. Take Senna with two full glasses of water each time. * Miralax, Dulcolax and Milk of Magnesia are other uhmx-[id number]-ztndwff laxatives that may be used as needed for post-operative constipation. * Drink 6-8 glasses of water per day. * Consume 15-30g of fiber per day: * Metamucil powder, 1-2 tablespoons 1-2 times/day OR Benefiber powder, 2 tablespoons 4 times/day. * Avoid straining. 7. Follow-Up: Do Not miss your follow-up appointment. Keep up with all your appointments and yearly check ups If you have any of the following symptoms please call [phone] immediately: Excessive swelling of the affected extremity Sudden onset of severe or unusual pain in the affected extremity Pain that gets worse or is not relieved by medication Warmth, redness, or swelling in the skin around the wound Foul drainage from incision Extensive bruising or discoloration Wound that opens up or pulls apart Fever above 101.5F or shaking chills Nausea or vomiting Severe diarrhea or severe constipation Dizziness or fainting Chest pain, shortness of breath, or increased work of breathing Weight gain >10 lbs over 3-4 days Inability to urinate for more than 6 hours Cloudy or foul smelling urine Urge to urinate more often than usual Symptoms to Report to Your Doctor: Temperature 101F or higher Pain uncontrolled by medication Drainage or foul odor from incision Extensive bruising or discoloration Chest pain Shortness of breath Nausea, vomiting or dizziness Call 911: Call 911 right away if you have: Sudden onset of chest pain that is not relieved by medications Shortness of breath
[2018-12-05] MEDS: Senna/Docusate Sodium 8.6/50 MG Tablet PO SCH (09:18)
[2018-12-05] MEDS: Metoprolol Tartrate 25 MG Tablet PO SCH (09:19)
[2018-12-05] MEDS: Enoxaparin Inj 40 MG/0.4 ML Syringe SQ SCH (09:20)
== END 2018-12-05 11:00 | disposition home or self-care (01) | DRG 272 ==
LOC: HSDI 05:45 → HCPC 17:42
PROVIDERS: ADMIT Surgery; ATTEND Surgery
CPT/HCPCS: 75625; 80048; 85027; 86850; 86900; 86901; A4646; C1725; C1768; C1769; J1100; J1644; J1650; J2250; J2270; J2370; J2405; J2704; J2710; J2720; J3010; J3370; J7040; J7050; J7120; Q4145; Q9949; Q9967